=== PATIENT | female | born 1935 | race Caucasian/White ===

== ENCOUNTER 2018-09-27 11:39 | Outpatient (RCR) | payer MEDICARE ==
[2018-07-02 12:59] LABS: INR 1.8 (0.8-1.4); PROTHROMBIN TIME PATIENT 20.8 SEC (12.2-14.7)
[~2018-09-27 11:39] MED LIST: HYDR-2890 PO; WARF5TAB PO
[2018-09-27 13:00] LABS: INR 2.1 (0.8-1.4); PROTHROMBIN TIME PATIENT 24.1 SEC (12.2-14.7)
== END 2018-09-30 | disposition home or self-care (01) ==
LOC: LAB FS 11:39
PROVIDERS: ATTEND Pediatrics
DX: Z86.711 Personal history of pulmonary embolism (principal)
CPT/HCPCS: 36415; 85610

== ENCOUNTER 2019-02-20 16:18 | Emergency (ER) | payer MEDICARE ==
[~2019-02-20] VITALS: Ht 168 cm; Wt 100.0 kg
--- NOTE | 2019-02-20 16:20 | ED General ---
General Stated Complaint: LACERATION Source of Information: Patient History of Present Illness Date Seen by Provider: Feb 20, 2019 Time Seen by Provider: 16:40 Initial Comments Patient is an 83-year-old female who was at home when she was moving some bags of heavy contents. Incidentally, one of the bags had a knife in it which accidentally lacerated her on the ulnar aspect of the right distal forearm. Although the laceration was small, the patient does take chronic anticoagulation medications and her bleeding was not controllable at home. She went to a local urgent care and was referred to the emergency department. On arrival to the ER, she had continual oozing of small amount of blood but no nina bleeding. Denies any other injuries. Her last tetanus shot was in 2012, according to electronic medical record. Allergies and Home Medications Allergies Coded Allergies: Sulfa (Sulfonamide Antibiotics) (Verified Allergy, Unknown, 05/17/13) Uncoded Allergies: KFLEX (Allergy, Severe, RASH, 05/17/13) Home Medications Hydrocodone Bit/Acetaminophen 1 Each Tablet, 1 EACH PO Q4H PRN for PAIN, (Reported) Warfarin Sodium 5 Mg Tablet, 5 MG PO DAILY, (Reported) 5 MG FOR 2 DAYS THEN 5 1/2 FOR ONE DAY THEN BACK TO 5 MG Patient Home Medication List Home Medication List Reviewed: Yes Review of Systems Review of Systems Constitutional: no symptoms reported EENTM: no symptoms reported Respiratory: no symptoms reported Cardiovascular: no symptoms reported Musculoskeletal: no symptoms reported Skin: see HPI All Other Systems Reviewed Negative Unless Noted: Yes Past Ngnwbsh-Mjhqdp-Lcsgns Hx Immunizations Up To Date Date of Pneumonia Vaccine: May 03, 2012 Date of Influenza Vaccine: Mar 03, 2013 Past Medical History Arthritis Physical Exam Vital Signs Vital Signs - First Documented 02/20/19 16:20 Temp 36.4 Pulse 84 Resp 20 B/P (MAP) 151/77 (101) Pulse Ox 95 O2 Delivery Room Air Capillary Refill : Height, Weight, BMI Height: 5'6" Weight: 222lbs. oz. 100.819543kp; BMI Method: General Appearance: No Apparent Distress, WD/WN HEENT: Normal ENT Inspection Neck: Full Range of Motion Respiratory: Lungs Clear, Normal Breath Sounds Extremity: Normal Capillary Refill Neurologic/Psychiatric: Alert, Oriented x3 Skin: Normal Color, Warm/Dry, Other (less than 1 cm laceration is present in the area described. No active bleeding. Laceration does extend through the skin and just into the fascia. No visible tendons, nerves, arteries) Procedures/Interventions Wound Location: Upper Extremities Wound's Depth, Shape: superficial, irregular Wound Explored: clean Betadine Prep?: Yes Anesthesia: 1% Lidocaine Suture: Chromic Suture Size: 4-0 Number of Sutures: 2 Progress/Results/Core Measures Suspected Sepsis SIRS Temperature: Pulse: Respiratory Rate: Blood Pressure / Mean: Results/Orders My Orders Orders - SHERRY HIGH DO Dipht,Pertuss(Acell),Tet Adult (Boostrix (02/20/19 16:45) Vital Signs/I&O 02/20/19 16:20 Temp 36.4 Pulse 84 Resp 20 B/P (MAP) 151/77 (101) Pulse Ox 95 O2 Delivery Room Air Capillary Refill : Progress Note : Time: 16:44 Progress Note Patient is evaluated immediately on arrival to her room. She did have slow small amount of bleeding but no brisk bleeding. Patient was placed in the exam room and the wound was immediately anesthetized with 1% lidocaine. The area was cleansed with iodine and irrigated with saline. A total of 2 sutures were placed with dissolvable suture. Following this, pressure dressing was applied. Patient was discharged home with return precautions. Recommended to leave the current dressing in place for 2 days. After that can used Band-Aid only. Return to the ER for any new bleeding or concerns for infection which were discussed. All of her questions were answered prior to discharge home. Departure Impression Primary Impression: Laceration of right forearm Disposition: 01 HOME, SELF-CARE Condition: Improved Departure-Patient Inst. Referrals: SAMMI PENNY MD (PCP/Family) Primary Care Physician SHERRY HIGH DO Feb 20, 2019 16:20 POS
[2019-02-20] MEDS ORDERED: TETANUS,DIPTH,PERTUSS P/F (BOOSTRIX) 0.5 ML VIAL IM ONE (16:45)
[2019-02-20 16:55] VITALS: BP 151/77
== END 2019-02-20 16:55 | disposition home or self-care (01) ==
LOC: EDUNIT# 16:18 → ER FS 16:19
DX: S51.811A Laceration without foreign body of right forearm, initial encounter (principal); Z79.01 Long term (current) use of anticoagulants; Z88.2 Allergy status to sulfonamides; Z88.1 Allergy status to other antibiotic agents; W26.0XXA Contact with knife, initial encounter; Y92.009 Unspecified place in unspecified non-institutional (private) residence as the place of occurrence of the external cause
CPT/HCPCS: 12001; 90715

== ENCOUNTER 2019-06-11 11:44 | Outpatient (RCR) | payer MEDICARE ==
[2019-04-29 13:09] LABS: INR 1.9 (0.8-1.4); PROTHROMBIN TIME PATIENT 22.6 SEC (12.2-14.7)
[2019-05-28 12:50] LABS: INR 3.2 (0.8-1.4); PROTHROMBIN TIME PATIENT 34.3 SEC (12.2-14.7)
[2019-06-11 12:21] LABS: INR 2.7 (0.8-1.4); PROTHROMBIN TIME PATIENT 29.6 SEC (12.2-14.7)
== END 2019-07-28 | disposition home or self-care (01) ==
LOC: LAB FS 11:44
PROVIDERS: ATTEND Pediatrics
DX: I48.0 Paroxysmal atrial fibrillation (principal)
CPT/HCPCS: 36415; 85610

== ENCOUNTER 2019-09-15 12:10 | Outpatient (RCR) | payer MEDICARE ==
[2019-09-15 13:16] LABS: INR 2.4 (0.8-1.4)
[2019-12-02 11:16] LABS: INR 1.6 (0.8-1.4); PROTHROMBIN TIME PATIENT 19.6 SEC (12.2-14.7)
== END 2019-12-16 | disposition home or self-care (01) ==
LOC: LAB FS 12:10
PROVIDERS: ATTEND Pediatrics
DX: I48.0 Paroxysmal atrial fibrillation (principal)
CPT/HCPCS: 36415; 85610

== ENCOUNTER 2019-12-16 10:25 | Outpatient (RCR) | payer MEDICARE ==
[2019-12-16 11:11] LABS: INR 1.9 (0.8-1.4); PROTHROMBIN TIME PATIENT 21.6 SEC (12.2-14.7)
== END 2020-03-15 | disposition home or self-care (01) ==
LOC: LAB FS 10:25
PROVIDERS: ATTEND Pediatrics
DX: I48.0 Paroxysmal atrial fibrillation (principal)
CPT/HCPCS: 36415; 85610

== ENCOUNTER → 2020-01-22 | Outpatient (CLI) | payer MEDICARE | LOC: LAB FS 10:48 | PROVIDERS: ATTEND Pediatrics | DX: I48.0 Paroxysmal atrial fibrillation (principal) | CPT/HCPCS: 36415; 85610 ==

== ENCOUNTER 2020-03-11 10:05 | Outpatient (RCR) | payer MEDICARE ==
[2020-03-11 10:47] LABS: INR 1.8 (0.8-1.4); PROTHROMBIN TIME PATIENT 20.7 SEC (12.2-14.7)
[2020-03-11 12:32] LABS: BILIRUBIN,URINE NEGATIVE (NEGATIVE); CLARITY,URINE CLOUDY; COLOR,URINE YELLOW; GLUCOSE, URINE (UA) NEGATIVE (NEGATIVE); KETONES,URINE NEGATIVE (NEGATIVE); LEUKOCYTE ESTERASE ,URINE TRACE (NEGATIVE); NITRITE,URINE NEGATIVE (NEGATIVE); PH,URINE 7.5 (5-9); PROTEIN,URINE NEGATIVE (NEGATIVE); WBC,URINE >100 /HPF
[2020-03-11 12:33] LABS: BACTERIA,URINE FEW /HPF
== END 2020-06-09 | disposition home or self-care (01) ==
LOC: LAB FS 10:05
PROVIDERS: ATTEND Pediatrics
DX: I48.91 Unspecified atrial fibrillation (principal); R30.0 Dysuria
CPT/HCPCS: 36415; 81000; 85610; 87077; 87088; 87186

== ENCOUNTER → 2020-05-07 | Outpatient (CLI) | payer MEDICARE ==
[2020-05-07 11:53] LABS: INR 2.3 (0.8-1.4); PROTHROMBIN TIME PATIENT 25.6 SEC (12.2-14.7)
== END ==
LOC: LAB FS 10:46
PROVIDERS: ATTEND Pediatrics
DX: I48.91 Unspecified atrial fibrillation (principal)
CPT/HCPCS: 36415; 85610

== ENCOUNTER 2020-07-13 14:31 | Outpatient (RCR) | payer MEDICARE ==
[2020-07-13 15:08] LABS: INR 1.6 (0.8-1.4); PROTHROMBIN TIME PATIENT 19.6 SEC (12.2-14.7)
== END 2020-10-11 | disposition home or self-care (01) ==
LOC: LAB FS 14:31
PROVIDERS: ATTEND Pediatrics
DX: I48.0 Paroxysmal atrial fibrillation (principal)
CPT/HCPCS: 36415; 85610

== ENCOUNTER → 2020-08-25 | Outpatient (CLI) | payer MEDICARE ==
[2020-08-25 11:42] LABS: INR 2.2 (0.8-1.4); PROTHROMBIN TIME PATIENT 24.4 SEC (12.2-14.7)
== END ==
LOC: LAB FS 09:59
PROVIDERS: ATTEND Pediatrics
DX: I26.99 Other pulmonary embolism without acute cor pulmonale (principal)
CPT/HCPCS: 36415; 85610

== ENCOUNTER → 2020-09-28 | Outpatient (CLI) | payer MEDICARE ==
[2020-09-28 11:39] LABS: INR 1.3 (0.8-1.4); PROTHROMBIN TIME PATIENT 16.6 SEC (12.2-14.7)
== END ==
LOC: LAB FS 10:29
PROVIDERS: ATTEND Pediatrics
DX: I26.99 Other pulmonary embolism without acute cor pulmonale (principal)
CPT/HCPCS: 36415; 85610

== ENCOUNTER → 2021-01-13 | Outpatient (CLI) | payer MEDICARE ==
[2021-01-13 09:23] LABS: PROTHROMBIN TIME PATIENT 16.5 SEC (12.2-14.7)
[2021-01-13 09:24] LABS: INR 1.3 (0.8-1.4)
== END ==
LOC: LAB FS 08:47
PROVIDERS: ATTEND Pediatrics
DX: I26.99 Other pulmonary embolism without acute cor pulmonale (principal)
CPT/HCPCS: 36415; 85610

== ENCOUNTER 2021-05-09 17:04 | Inpatient (IN) | payer MEDICARE ==
[~2021-05-09] VITALS: Ht 165.1 cm; Wt 94.6 kg
--- NOTE | 2021-05-09 17:22 | ED Respiratory ---
General Stated Complaint: LOW O2 Source: patient, family Exam Limitations: no limitations History of Present Illness Date Seen by Provider: May 09, 2021 Time Seen by Provider: 17:07 Initial Comments 86-year-old female with past medical history of PE on warfarin after surgical procedure coming in with family due to hypoxia. She had a cough and felt short of breath for 4 to 5 days. She was reportedly satting in the 70s at Dr. Shen's office and was referred to the emergency department. She says she has had subjective fevers, no nausea or vomiting, no diarrhea, no chest pain or abdominal pain. Has not been able to eat in a couple days because of her general weakness. Has been taking her warfarin as prescribed. Has had COVID v accines x2. Allergies and Home Medications Allergies Coded Allergies: Sulfa (Sulfonamide Antibiotics) (Verified Allergy, Unknown, 05/17/13) Uncoded Allergies: KFLEX (Allergy, Severe, RASH, 05/17/13) Patient Home Medication List Home Medication List Reviewed: Yes Hydrocodone Bit/Acetaminophen (Hydrocodon-Acetaminophn 10-325) 1 Each Tablet, 1 EACH PO Q4H PRN for PAIN, (Reported) Entered as Reported by: RYAN TELLO on 05/17/13 140 Warfarin Sodium (Coumadin) 5 Mg Tablet, 5 MG PO DAILY, (Reported) Entered as Reported by: RYAN TELLO on 05/17/13 1407 Review of Systems Review of Systems Constitutional: chills, fever EENTM: No blurred vision Respiratory: cough, short of breath Cardiovascular: No chest pain Gastrointestinal: No abdominal pain, No diarrhea, No nausea, No vomiting Genitourinary: no symptoms reported Musculoskeletal: no symptoms reported Skin: no symptoms reported Psychiatric/Neurological: No Symptoms Reported Hematologic/Lymphatic: No Symptoms Reported Immunological/Allergic: no symptoms reported All Other Systems Reviewed Negative Unless Noted: Yes Past Rkapvpl-Pqamjq-Gpsmgt Hx Patient Social History Tobacco Use?: No Past Medical History Surgeries: Yes (STONE ON LIVER DUCT) Eye Surgery, Gallbladder, Hysterectomy, Orthopedic, Tonsillectomy Respiratory: Yes Pulmonary Embolism Cardiac: Yes (Heart Disease) Hypertension 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 oz. 100.311378fy; 35.00 BMI Method: General Appearance: WD/WN, no apparent distress Eyes: Bilateral Eye Normal Inspection HEENT: PERRL/EOMI, normal ENT inspection, pharynx normal Neck: non-tender, full range of motion, supple, normal inspection Respiratory: chest non-tender, no accessory muscle use, crackles, other (Mild tachypnea and distress) Cardiovascular: no edema, no murmur, tachycardia Gastrointestinal: normal bowel sounds, non tender, soft; No distended, No guarding, No rebound Extremities: normal range of motion, non-tender, normal inspection, no pedal edema, no calf tenderness, normal capillary refill Neurologic/Psychiatric: no motor/sensory deficits, alert, normal mood/affect, oriented x 3 Skin: normal color, warm/dry Lymphatic: no adenopathy Procedures/Interventions Suture Size: 4-0 Progress/Results/Core Measures Suspected Sepsis SIRS Temperature: Pulse: Respiratory Rate: Laboratory Tests 05/09/21 17:19: White Blood Count 14.5H Blood Pressure / Mean: Laboratory Tests 05/09/21 17:19: Creatinine 1.00, Platelet Count 302, Total Bilirubin 0.9 05/09/21 17:45: INR Comment 4.5H Results/Orders Lab Results Laboratory Tests Test 05/09/21 17:19 05/09/21 17:27 05/09/21 17:45 Range/Units White Blood Count 14.5 H 4.3-11.0 10^3/uL Red Blood Count 5.37 H 3.80-5.11 10^6/uL Hemoglobin 15.7 11.5-16.0 g/dL Hematocrit 48 35-52 % Mean Corpuscular Volume 89 80-99 fL Mean Corpuscular Hemoglobin 29 25-34 pg Mean Corpuscular Hemoglobin Concent 33 32-36 g/dL Red Cell Distribution Width 12.6 10.0-14.5 % Platelet Count 302 130-400 10^3/uL Mean Platelet Volume 10.3 9.0-12.2 fL Immature Granulocyte % (Auto) 1 % Neutrophils (%) (Auto) 84 H 42-75 % Lymphocytes (%) (Auto) 4 L 12-44 % Monocytes (%) (Auto) 11 0-12 % Eosinophils (%) (Auto) 0 0-10 % Basophils (%) (Auto) 0 0-10 % Neutrophils # (Auto) 12.1 H 1.8-7.8 10^3/uL Lymphocytes # (Auto) 0.5 L 1.0-4.0 10^3/uL Monocytes # (Auto) 1.6 H 0.0-1.0 10^3/uL Eosinophils # (Auto) 0.0 0.0-0.3 10^3/uL Basophils # (Auto) 0.1 0.0-0.1 10^3/uL Immature Granulocyte # (Auto) 0.1 0.0-0.1 10^3/uL Neutrophils % (Manual) 85 % Lymphocytes % (Manual) 4 % Monocytes % (Manual) 7 % Eosinophils % (Manual) 0 % Basophils % (Manual) 0 % Band Neutrophils 4 % Sodium Level 131 L 135-145 MMOL/L Potassium Level 3.8 3.6-5.0 MMOL/L Chloride Level 89 L 98-107 MMOL/L Carbon Dioxide Level 26 21-32 MMOL/L Anion Gap 16 H 5-14 MMOL/L Blood Urea Nitrogen 31 H 7-18 MG/DL Creatinine 1.00 0.60-1.30 MG/DL Estimat Glomerular Filtration Rate 55 BUN/Creatinine Ratio 31 Glucose Level 124 H 70-105 MG/DL Calcium Level 10.0 8.5-10.1 MG/DL Corrected Calcium 10.2 H 8.5-10.1 MG/DL Magnesium Level 1.9 1.6-2.4 MG/DL Total Bilirubin 0.9 0.1-1.0 MG/DL Aspartate Amino Transf (AST/SGOT) 16 5-34 U/L Alanine Aminotransferase (ALT/SGPT) 13 0-55 U/L Alkaline Phosphatase 95 40-136 U/L Troponin I < 0.30 <0.30 NG/ML Pro-B-Type Natriuretic Peptide 1085.0 H <75.0 PG/ML Total Protein 8.7 H 6.4-8.2 GM/DL Albumin 3.8 3.2-4.5 GM/DL Influenza Type A Antigen NEGATIVE NEGATIVE Influenza Type B Antigen NEGATIVE NEGATIVE Prothrombin Time 43.4 H 12.2-14.7 SEC INR Comment 4.5 H 0.8-1.4 Activated Partial Thromboplast Time 54 H 24-35 SEC D-Dimer 3.92 H 0.00-0.49 UG/ML My Orders Orders - BRANT MEZA MD Influenza A & B Antigens (05/09/21 17:19) Covid 19 Inhouse Test (05/09/21 17:19) Cbc With Automated Diff (05/09/21 17:19) Magnesium (05/09/21 17:19) Chest 1 View Ap/Pa Only (05/09/21 17:19) Ekg Tracing (05/09/21 17:19) Comprehensive Metabolic Panel (05/09/21 17:19) Protime With Inr (05/09/21 17:19) Partial Thromboplastin Time (05/09/21 17:19) O2 (05/09/21 17:19) Monitor-Rhythm Ecg Trace Only (05/09/21 17:19) Ed Iv/Invasive Line Start (05/09/21 17:19) Fibrin Degradation Products (05/09/21 17:19) Troponin I Fs (05/09/21 17:19) Probnp Fs (05/09/21 17:19) Manual Differential (05/09/21 17:19) Ct Angio Chest W (05/09/21 18:32) Iohexol Injection (Omnipaque 350 Mg/Ml 1 (05/09/21 18:45) Received Contrast (Hold Metformin- Contr (05/09/21 18:45) Ns (Ivpb) (Sodium Chloride 0.9% Ivpb Bag (05/09/21 18:45) Dexamethasone Injection (Decadron Injec (05/09/21 19:00) Arterial Blood Gas (05/09/21 18:55) Ed Admission (Communication) (05/09/21 18:55) Ceftriaxone 1 Gm Pre-Mix (Rocephin 1 Gm (05/09/21 19:30) Azithromycin Tablet (Zithromax Tablet) (05/09/21 19:30) Ns Iv 1000 Ml (Sodium Chloride 0.9%) (05/09/21 19:30) Medications Given in ED Current Medications Medications Dose Ordered Sig/Tayler Route Start Time Stop Time Status Last Admin Dose Admin Iohexol 150 ml ONCE ONCE IV 05/09/21 18:45 05/09/21 18:46 DC 05/09/21 19:03 100 ML Sodium Chloride 100 ml ONCE ONCE IV 05/09/21 18:45 05/09/21 18:46 DC 05/09/21 19:04 100 ML Vital Signs/I&O 05/09/21 17:22 Temp 36.1 Pulse 119 Resp 20 B/P (MAP) Pulse Ox 79 O2 Delivery Room Air Capillary Refill : Progress Note : Progress Note 86-year-old female with above history coming in short of breath with cough and flulike symptoms. The patient was satting around 79% on arrival and was placed on 4 L oxygen with improvement to around 94 to 98%. She was mildly tachycardic. An IV was placed and basic labs were obtained including cardiac biomarkers and D-dimer. She had a negative antigen test for COVID today, however these can be inaccurate. Flu testing today negative as well. We sent a PCR test to confirm for COVID. Chest x-ray with scattered opacities which could be atypical pneumonia versus pulmonary edema. Patient was given Decadron 6 mg for presumed COVID. Also started on maintenance IV fluids given her decreased p.o. D-dimer elevated so CTA chest ordered. Discussed the case with Dr. Najera and the patient will be admitted under inpatient status for further evaluation and management. ECG Initial ECG Impression Date: May 09, 2021 Initial ECG Impression Time: 19:15 Initial ECG Rate: 111 Initial ECG Rhythm: S.Tach Comment Wide QRS with a left bundle branch block, no significant ST changes or T wave abnormalities Diagnostic Imaging Diagonstic Imaging: Xray Plain Films/CT/US/NM/MRI: chest Comments [facility]. [place], [place] NAME: TADEO MILLS [facility] REC#: [id number] PT STATUS: REG ER : 1935 PHYSICIAN: BRANT MEZA MD ADMIT DATE: 05/09/21/ER FS Draft Date of Exam:05/09/21 CHEST 1 VIEW AP/PA ONLY EXAMINATION: Chest 1 view HISTORY: SOB COMPARISON: None available. FINDINGS: Heart size and pulmonary vasculature are normal. There are patchy interstitial opacities seen throughout both lungs. No pleural effusion or pneumothorax. The osseous structures are intact. IMPRESSION: 1. Patchy interstitial opacities seen throughout both lungs which can be seen with atypical infection or pulmonary edema. Dictated on workstation # [id number] Dict: 05/09/21 1736 Trans: 05/09/21 1753 [facility] [id number] Interpreted by: FADY LEE DO Electronically signed by: Departure Impression Primary Impression: Respiratory failure Qualified Codes: J96.01 - Acute respiratory failure with hypoxia Additional Impression: Person under investigation for COVID-19 Disposition: 30 STILL A PATIENT Condition: Stable Admissions Decision to Admit Reason: Admit from ER (General) Decision to Admit/Date: May 09, 2021 Time/Decision to Admit Time: 19:05 Transfer Method of Transfer: EMS Departure-Patient Inst. Referrals: SAMMI PENNY MD (PCP/Family) Primary Care Physician BRANT MEZA MD May 09, 2021 17:22
[2021-05-09 17:32] LABS: BASOPHILS # (AUTO) 0.1 10^3/uL (0.0-0.1); BASOPHILS % (AUTO) 0 % (0-10); EOSINOPHILS % (AUTO) 0 % (0-10); HEMATOCRIT 48 % (35-52); HEMOGLOBIN 15.7 g/dL (11.5-16.0); LYMPHOCYTES # (AUTO) 0.5 10^3/uL (1.0-4.0); LYMPHOCYTES % (AUTO) 4 % (12-44); MEAN CORPUSCULAR HEMOGLOBIN 29 pg (25-34); MEAN CORPUSCULAR HGB CONC 33 g/dL (32-36); MEAN CORPUSCULAR VOLUME 89 fL (80-99); MEAN PLATELET VOLUME 10.3 fL (9.0-12.2); MONOCYTES # (AUTO) 1.6 10^3/uL (0.0-1.0); MONOCYTES % (AUTO) 11 % (0-12); NEUTROPHILS # (AUTO) 12.1 10^3/uL (1.8-7.8); NEUTROPHILS % (AUTO) 84 % (42-75); PLATELET COUNT 302 10^3/uL (130-400); WHITE BLOOD COUNT 14.5 10^3/uL (4.3-11.0)
--- NOTE | 2021-05-09 17:53 | Diagnostic Imaging Report ---
EXAMINATION: Chest 1 view HISTORY: SOB COMPARISON: None available. FINDINGS: Heart size and pulmonary vasculature are normal. There are patchy interstitial opacities seen throughout both lungs. No pleural effusion or pneumothorax. The osseous structures are intact. IMPRESSION: 1. Patchy interstitial opacities seen throughout both lungs which can be seen with atypical infection or pulmonary edema. Dictated by: Dictated on workstation # [id number]
[2021-05-09 17:59] LABS: BAND NEUTROPHILS 4 %; BASOPHILS % (MANUAL) 0 %; EOSINOPHILS % (MANUAL) 0 %; LYMPHOCYTES % (MANUAL) 4 %; MONOCYTES % (MANUAL) 7 %; NEUTROPHILS % (MANUAL) 85 %
[2021-05-09 18:05] LABS: INR 4.5 (0.8-1.4); PROTHROMBIN TIME PATIENT 43.4 SEC (12.2-14.7)
[2021-05-09 18:06] LABS: BILIRUBIN,TOTAL 0.9 MG/DL (0.1-1.0); MAGNESIUM 1.9 MG/DL (1.6-2.4); POTASSIUM 3.8 MMOL/L (3.6-5.0); TOTAL PROTEIN 8.7 GM/DL (6.4-8.2)
[2021-05-09 18:07] LABS: ALBUMIN 3.8 GM/DL (3.2-4.5)
[2021-05-09] MEDS ORDERED: HOLD METFORMIN - RECEIVED CONTRAST 20 ML VIAL IV SCH (18:45)
[2021-05-09] MEDS ORDERED: IOHEXOL 350 MG/ML 150 ML (OMNIPAQUE 350) VIAL IV ONE (18:45)
[2021-05-09] MEDS ORDERED: NS 100 ML (IVPB) BAG IV ONE (18:45)
[2021-05-09] MEDS ORDERED: LACTATED RINGERS 1,000 ML IV SCH (19:00)
--- NOTE | 2021-05-09 19:13 | Diagnostic Imaging Report ---
EXAMINATION: CT angiography of the chest. TECHNIQUE: Contrast enhanced thin section helical images were obtained through the chest with intravenous contrast timed for the optimal opacification of the arterial structures per CTA protocol. Post-processing, reconstructions and interpretation of angiographic images of the vessels was performed. 3D MIP reconstructions were performed and reviewed. All CT scans use one or more of the following dose optimizing techniques: automated exposure control, MA and/or KvP adjustment based on a patient size and exam type, or iterative reconstruction. HISTORY: hypoxic, dimer positive, previous PE COMPARISON: None available. FINDINGS: Vascular: No filling defects are seen within the main or proximal pulmonary arteries. Evaluation of the distal pulmonary arteries is limited secondary to respiratory motion. There are vascular calfications of the aorta and coronary vessels without aneurysm. Thyroid: The thyroid is normal. Mediastinum: Heart size is normal without significant pericardial effusion. There are a few prominent mediastinal lymph nodes which may be reactive. Lungs and airways: There are patchy groundglass opacities seen throughout both lungs. No pleural effusion or pneumothorax. The airways are normal. Upper abdomen: The subphrenic structures are normal. Musculoskeletal: Degenerative changes of the spine without suspicious osseous lesion or compression fracture. IMPRESSION: 1. No obvious findings of pulmonary embolus. Evaluation of the distal arteries is limited secondary to respiratory motion. 2. Patchy groundglass opacities throughout both lungs concerning for multifocal pneumonia. Dictated by: Dictated on workstation # [id number]
[2021-05-09] MEDS ORDERED: NS IV 1000 ML 1,000 ML IV SCH (19:30)
[2021-05-09] MEDS ORDERED: cefTRIAXone 1 GM PRE-MIX 50 ML IV ONE (19:30)
[2021-05-09] MEDS ORDERED: AZITHROMYCIN 250 MG TAB (ZITHROMAX) PO ONE (19:30)
[2021-05-09 19:40] LABS: ABG PH 7.24 (7.37-7.43)
[2021-05-09 19:41] LABS: ABG BASE EXCESS 0.9 MMOL/L (-2.5-2.5); ABG OXYGEN SATURATION 91 % (94-100); ABG PCO2 70 MMHG (35-45); ABG PO2 71 MMHG (79-93); ABG TCO2 32.1 MMOL/L (21.0-31.0); ALLENS TEST OK; INSPIRED O2 4 LITERS; PATIENT TEMP 36.9 C; VENTILATOR NO
[2021-05-09] MEDS ORDERED: morphine INJ 4 MG/ML 1 ML (VIAL/SYRINGE) IV PRN (22:45)
[2021-05-09] MEDS ORDERED: BISACODYL 10 MG SUPP (DULCOLAX) PR PRN (22:45)
[2021-05-09] MEDS ORDERED: diphenhydrAMINE 25 MG TAB (BENADRYL) PO PRN (22:45)
[2021-05-09] MEDS ORDERED: MELATONIN 3 MG TABLET PO PRN (22:45)
[2021-05-09] MEDS ORDERED: diphenhydrAMINE 50 MG/ML INJ (BENADRYL) IVP PRN (22:45)
[2021-05-09] MEDS ORDERED: HYDROcodone/APAP 5 MG/325 MG (LORTAB) TAB PO PRN (22:45)
[2021-05-09] MEDS ORDERED: ONDANSETRON 4 MG (ZOFRAN) ORAL DISSOLVE TAB PO PRN (22:45)
[2021-05-09] MEDS ORDERED: ACETAMINOPHEN 325 MG TABLET PO PRN (22:45)
[2021-05-09] MEDS ORDERED: ANTACID SUSP 30 ML UDC (MYLANTA) PO PRN (22:45)
[2021-05-09] MEDS ORDERED: ONDANSETRON 4 MG/2 ML (SDV) Z0FRAN IV PRN (22:45)
[2021-05-09] MEDS ORDERED: polyethylene glycoL POWDER 17 GM (MIRALAX) PACK PO PRN (22:45)
[2021-05-09 23:59] VITALS: BP 42/98
[2021-05-10] VITALS (26 sets, daily range): BP systolic 99–153; BP diastolic 48–77
[2021-05-10] MEDS ORDERED: RT-ALBUTEROL HFA 8.5 GM INHALER IH PRN (00:15)
[2021-05-10 01:12] LABS: ABG BASE EXCESS 2.5 MMOL/L (-2.5-2.5); ABG OXYGEN SATURATION 97 % (94-100); ABG PO2 98 MMHG (79-93); ABG TCO2 31.9 MMOL/L (21.0-31.0)
[2021-05-10 01:17] LABS: ABG PCO2 78 MMHG (35-45); ABG PH 7.21 (7.37-7.43); ALLENS TEST YES-POS; INSPIRED O2 70%; PATIENT TEMP 37.6; VENTILATOR NO
--- NOTE | 2021-05-10 02:19 | Tele-ICU Consult ---
History of Present Illness History of Present Illness Date Seen by Provider: May 10, 2021 Time Seen by Provider: 02:12 Date of Admission 86 y old lady with recent post op PE (on Coumadin), COVID vaccinated, presented with sob and viral sdr. Pt was found to be COVID; she developed acute hypercarbic resp failure and was placed on BIPAP. Empiric abx were started. Allergies and Home Medications Allergies Coded Allergies: Sulfa (Sulfonamide Antibiotics) (Verified Allergy, Unknown, 05/17/13) Uncoded Allergies: KFLEX (Allergy, Severe, RASH, 05/17/13) Home Medications Hydrocodone Bit/Acetaminophen 1 Each Tablet, 1 EACH PO Q4H PRN for PAIN, (Reported) Warfarin Sodium 5 Mg Tablet, 5 MG PO DAILY, (Reported) 5 MG FOR 2 DAYS THEN 5 1/2 FOR ONE DAY THEN BACK TO 5 MG Past Medical/Social/Family Hx Patient Social History Employed/Student: retired Tobacco Use?: No Use of E-Cig and/or Vaping dev: No Substance use?: No Alcohol Use?: No Pt stated abuse/neglect: No Immunizations Up To Date Influenza Vaccine Up-to-Date: Yes; Up-to-Date First/Initial COVID19 Vaccinat: UNKOWN Tetanus Booster (TDap): Unknown Hepatitis A: Yes Hepatitis B: Yes TB Skin Test: None Date of Pneumonia Vaccine: May 03, 2012 Current Status Advance Directives: No Communicates: Verbally Primary Language: Belarusian Preferred Spoken Language: Belarusian Is interpretation needed?: No Sensory deficits: Vision impairment Implanted or Applied Medical D: None, BiPAP Past Medical History COPD Review of Systems Constitutional: see HPI Focused Exam Lactate Level 05/09/21 17:19: Lactic Acid Level 2.46*H 05/09/21 20:50: Lactic Acid Level 0.98 Height, Weight, BMI Height: 5'6" Weight: 222lbs. oz. 100.147523hg; 34.70 BMI Method: Exam Exam Patient acknowledged, consented, and participated in this virtual visit which was conducted using real time audio/video Vital Signs Date Time Temp Pulse Resp B/P (MAP) Pulse Ox O2 Delivery O2 Flow Rate FiO2 05/10/21 01:45 NIV Bilevel 50.00 05/10/21 00:45 36.4 104 20 153/77 (102) 91 Nasal Cannula 4.00 05/10/21 00:10 80 97 70.00 05/09/21 23:59 36.1 119 79 21 05/09/21 21:00 36.4 102 20 131/92 94 Nasal Cannula 4.00 05/09/21 20:30 104 20 173/87 Nasal Cannula 4.00 05/09/21 19:30 108 18 151/62 92 Nasal Cannula 4.00 05/09/21 17:22 36.1 119 20 79 Room Air 05/09/21 17:19 79 Nasal Cannula 4.00 Height & Weight Height: 5'6" Weight: 222lbs. oz. 100.461461ot; 34.70 BMI Method: General Appearance: No Apparent Distress Capillary Refill: Less Than 3 Seconds Gastrointestinal: normal bowel sounds, non tender, soft; No distended, No guarding, No rebound Results Lab Laboratory Tests 05/09/21 17:19 Assessment/Plan Assessment/Plan 1. Acute hypercarbic hypoxemic resp failure in the conetx of covid -bipap to be titrated based on abg -consdier intubation if needed 2. COVID -pna/ ro bacterial coinfection: empiric abx/ procal ordered -vte on lovenox once inr<3 -decadron started -monoclonal abx DEE DEE PINTO MD May 10, 2021 02:19
[2021-05-10 02:49] LABS: ABG BASE EXCESS 3.3 MMOL/L (-2.5-2.5); ABG OXYGEN SATURATION 94 % (94-100); ABG PCO2 57 MMHG (35-45); ABG PO2 63 MMHG (79-93); ABG TCO2 30.9 MMOL/L (21.0-31.0)
[2021-05-10 02:51] LABS: ABG PH 7.32 (7.37-7.43)
[2021-05-10 02:52] LABS: ALLENS TEST YES-POS; INSPIRED O2 40%; PATIENT TEMP 36.2; VENTILATOR NO
[2021-05-10 02:57] LABS: BASOPHILS % (AUTO) 0 % (0-10); EOSINOPHILS % (AUTO) 0 % (0-10); HEMATOCRIT 41 % (35-52); LYMPHOCYTES # (AUTO) 0.3 10^3/uL (1.0-4.0); LYMPHOCYTES % (AUTO) 3 % (12-44); MEAN CORPUSCULAR HEMOGLOBIN 29 pg (25-34); MEAN CORPUSCULAR HGB CONC 32 g/dL (32-36); MEAN CORPUSCULAR VOLUME 92 fL (80-99); MEAN PLATELET VOLUME 10.6 fL (9.0-12.2); MONOCYTES # (AUTO) 0.5 10^3/uL (0.0-1.0); MONOCYTES % (AUTO) 4 % (0-12); NEUTROPHILS # (AUTO) 10.9 10^3/uL (1.8-7.8); NEUTROPHILS % (AUTO) 92 % (42-75); PLATELET COUNT 253 10^3/uL (130-400); WHITE BLOOD COUNT 11.8 10^3/uL (4.3-11.0)
[2021-05-10 03:12] LABS: CALCIUM 9.1 MG/DL (8.5-10.1)
[2021-05-10 03:13] LABS: TOTAL PROTEIN 6.8 GM/DL (6.4-8.2)
[2021-05-10 03:15] LABS: BILIRUBIN,TOTAL 0.5 MG/DL (0.1-1.0)
[2021-05-10 03:16] LABS: CREATININE SERUM 0.73 MG/DL (0.60-1.30)
[2021-05-10 03:18] LABS: INR 4.8 (0.8-1.4)
[2021-05-10] MEDS: inSUlin ASPART (NovoLOG) 1 UNIT/0.01 ML (CHARGE PER UNIT) SC SCH ×4 (03:24→21:21)
[2021-05-10 03:46] LABS: PROTHROMBIN TIME PATIENT 45.7 SEC (12.2-14.7)
[2021-05-10] MEDS: POTASSIUM CL 10MEQ/50ML IVPB 50 ML IV SCH (04:12)
[2021-05-10] MEDS: KCL 20 MEQ TAB (K-DUR) PO SCH (04:12)
[2021-05-10] MEDS: MAGNESIUM 1 GM/100 ML IVPB 100 ML IV SCH (04:12)
[2021-05-10] MEDS ORDERED: DexMEDEtomidine 250 ML DRIP 250 ML IV SCH (04:45)
[2021-05-10] MEDS ORDERED: DexMEDEtomidine 250 ML DRIP 250 ML IV ONE (04:48)
[2021-05-10] MEDS: DOCUSATE SODIUM 100 MG (COLACE) CAP PO SCH ×2 (08:02→21:20)
[2021-05-10] MEDS: RT-ALBUTEROL HFA 8.5 GM INHALER IH SCH ×5 (08:24→22:58)
--- NOTE | 2021-05-10 10:42 | History & Physical-Hospitalist ---
BRANT GARCIA 05/10/21 1042: History of Present Illness HPI/Chief Complaint CC: Shortness of Breath HPI: This is an 86yoWF who presented yesterday to the ED with weakness and shortness of breath. Her niece, Jennifer, brought her to the ED after the patient wa s complaining of feeling "cold-like symptoms" for a period of 4 days. Jennifer's daughter drove to flower picker Shantel at her home and found her sitting in her own feces and urine. It was discovered that the patient was in this condition for approximately 4 days with little food or care. She lives at home with her 95yo and mentally handicapped 45yo son who she is the primary caregiver for. Upon arrival to the ED she tested positive for COVID and was placed on BiPAP due to respiratory distress. A CXR and CTA were obtained which suggested patchy interstitial infiltrates without any evidence of thrombus. Patient takes Coumadin 4mg daily due to a history of clots following surgical procedures. Jennifer, her niece, states that she has been taking this for years to prevent further thrombus formation. Otherwise, Jennifer states that she has no other significant past medical history. Exam Limitations: clinical condition Date Seen 05/10/21 Time Seen by a Provider: 09:30 Attending Physician Hansa Najera John M MD Referring Physician Date of Admission May 09, 2021 at 21:56 Home Medications & Allergies Home Medications Reviewed patient Home Medication Reconciliation performed by pharmacy medication reconciliations insulator technician and/or nursing. Patients Allergies have been reviewed. Allergies Allergies Coded Allergies Sulfa (Sulfonamide Antibiotics) (Verified Allergy, Unknown, 05/17/13) Uncoded Allergies KFLEX ( Allergy, Severe, RASH, 05/17/13) Past Laddeos-Miruty-Mfeylv Hx Patient Social History Marrital Status: Living Status: lives at home with 95yr and 45yo mentally handicapped son Employed/Student: retired Tobacco Use?: No Use of E-Cig and/or Vaping dev: No Substance use?: No Alcohol Use?: No Pt feels they are or have been: No Immunizations Up To Date Date of Influenza Vaccine: Mar 03, 2013 First/Initial COVID19 Vaccinat: Obtained Second COVID19 Vaccination Riley: Obtained - no booster Tetanus Booster (TDap): Unknown Hepatitis A: Yes Hepatitis B: Yes Date of Pneumonia Vaccine: May 03, 2012 Current Status Advance Directives: No Communicates: Verbally Primary Language: Citizen Of [place] Preferred Spoken Language: Citizen Of [place] Is interpretation needed?: No Sensory deficits: Vision impairment Implanted or Applied Medical D: None, BiPAP Past Medical History Surgeries: Eye Surgery, Gallbladder, Hysterectomy, Orthopedic, Tonsillectomy Pulmonary Embolism Hypertension 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: Hysterectomy Kidney Stones Gastroesophageal Reflux Arthritis Cataract Depression Blood Disorders: No Review of Systems Constitutional: weakness EENTM: no symptoms reported Respiratory: dyspnea on exertion, short of breath Cardiovascular: no symptoms reported Gastrointestinal: no symptoms reported Genitourinary: no symptoms reported Musculoskeletal: no symptoms reported Skin: no symptoms reported Psychiatric/Neurological: No Symptoms Reported Physical Exam Physical Exam Vital Signs Vital Signs - First Documented 05/09/21 05/09/21 05/09/21 05/09/21 05/09/21 00:45 17:19 17:22 19:30 23:59 Temp 36.1 Pulse 85 Resp 25 B/P (MAP) 151/62 Pulse Ox 98 O2 Delivery Nasal Cannula O2 Flow Rate 70.00 FiO2 21 Capillary Refill : Less Than 3 Seconds Height, Weight, BMI Height: 5'6" Weight: 222lbs. oz. 100.993278bw; 34.70 BMI Method: General Appearance: Anxious, Mild Distress Eyes: Bilateral Eye Normal Inspection, Bilateral Eye PERRL, Bilateral Eye EOMI HEENT: PERRL/EOMI, Pharynx Normal, Moist Mucous Membranes Neck: Full Range of Motion, Normal Inspection, Non Tender, Supple Respiratory: Chest Non Tender, Normal Breath Sounds, No Accessory Muscle Use, Respiratory Distress (on BiPAP) Cardiovascular: Regular Rate, Rhythm, No Edema, No Gallop, No JVD, No Murmur, Normal Peripheral Pulses Gastrointestinal: Normal Bowel Sounds, No Organomegaly, Non Tender, Soft Rectal: Deferred Back: Normal Inspection Extremity: Normal Capillary Refill, Normal Inspection Neurologic/Psychiatric: Alert, Oriented x3, No Motor/Sensory Deficits, Normal Mood/Affect, rn medical surgical II-XII Norm as Tested Skin: Normal Color, Warm/Dry Results Results/Procedures Labs Laboratory Tests 05/09/21 17:19 05/10/21 02:46 Patient resulted labs reviewed. Imaging: Reviewed Imaging Report Assessment/Plan Admission Diagnosis Acute Hypoxic Respiratory Failure Admission Status: Inpatient Order (span 2 midnights) Reason for Inpatient Admission: Respiratory support Diagnosis/Problems Diagnosis/Problems (1) Respiratory failure Onset Date: ~ 05/09/2021 Status: Acute Assessment & Plan: BiPAP Monitor need for intubation via ABG ABG 7.32/57/63/29 Precedex Advanced Directive Qualifiers: Chronicity: acute Respiratory failure complication: hypoxia Qualified Codes: J96.01 - Acute respiratory failure with hypoxia (2) COVID Onset Date: ~ 05/09/2021 Status: Acute Assessment & Plan: Decadron Empiric Antibiotics (Azithryomcin D#2) (Ceftriaxone D#2) IVF/K+/Mg2+ CXR: patchy interstitial infiltrates CTA: no evidence of thrombus HANSA NAJERA DO 05/11/21 0531: Supervisory-Addendum Brief Verification & Attestation Participated in pt care: history, MDM, physical Personally performed: exam, history, MDM, supervision of care Care discussed with: Medical Student Procedures: n/a Results interpretation: Verified all documentation Verification and Attestation of Medical Student E/M Service A medical student performed and documented this service in my presence. I reviewed and verified all information documented by the medical student and made modifications to such information, when appropriate. I personally performed the physical exam and medical decision making. Hansa Najera, May 11, 2021,05:31 BRANT GARCIA May 10, 2021 10:42 HANSA NAJERA DO May 11, 2021 05:31
--- NOTE | 2021-05-10 10:47 | Tele-ICU Progress Note ---
Progress Note Available chart/ vitals / labs / Images reviewed Video assessment done using teleICU camera, rest of exam as per RN Discussed with RN , EXAM PER RN Patient is awake , on precedex , fio2 30 % will try to take off BIPAP and reassess mental status and abg Focused Exam Lactate Level 05/09/21 17:19: Lactic Acid Level 2.46*H 05/09/21 20:50: Lactic Acid Level 0.98 Height, Weight, BMI Height: 5'6" Weight: 222lbs. oz. 100.883442bw; 34.70 BMI Method: ANNABELLE ADAMS MD May 10, 2021 10:47
[2021-05-10 12:54] LABS: ABG BASE EXCESS 4.4 MMOL/L (-2.5-2.5); ABG OXYGEN SATURATION 94 % (94-100); ABG PCO2 46 MMHG (35-45); ABG PH 7.41 (7.37-7.43); ABG PO2 60 MMHG (79-93); ABG TCO2 30.4 MMOL/L (21.0-31.0)
[2021-05-10 12:57] LABS: ALLENS TEST YES-POS; INSPIRED O2 30%; VENTILATOR NO
[2021-05-10] MEDS ORDERED: AMLO-250 PO (14:01)
[2021-05-10] MEDS ORDERED: WARF4TAB3 PO (14:01)
[2021-05-10] MEDS ORDERED: PROM5SYR PO (14:01)
[2021-05-10] MEDS ORDERED: CALC-140 PO (14:01)
[2021-05-10] MEDS ORDERED: PRAV40TA2 PO (14:01)
[2021-05-10] MEDS ORDERED: FLUO10CA33 PO (14:01)
[2021-05-10] MEDS ORDERED: TRAM50TA3 PO (14:01)
[2021-05-10] MEDS ORDERED: GUAI-370 PO (14:05)
[2021-05-11] VITALS (14 sets, daily range): BP systolic 109–167; BP diastolic 47–88
[2021-05-11] MEDS: RT-ALBUTEROL HFA 8.5 GM INHALER IH SCH ×6 (02:35→22:38)
[2021-05-11 05:43] LABS: BASOPHILS % (AUTO) 0 % (0-10); EOSINOPHILS % (AUTO) 0 % (0-10); HEMATOCRIT 40 % (35-52); HEMOGLOBIN 13.3 g/dL (11.5-16.0); LYMPHOCYTES # (AUTO) 0.4 10^3/uL (1.0-4.0); LYMPHOCYTES % (AUTO) 3 % (12-44); MEAN CORPUSCULAR HEMOGLOBIN 30 pg (25-34); MEAN CORPUSCULAR HGB CONC 34 g/dL (32-36); MEAN CORPUSCULAR VOLUME 89 fL (80-99); MEAN PLATELET VOLUME 10.9 fL (9.0-12.2); MONOCYTES # (AUTO) 0.7 10^3/uL (0.0-1.0); MONOCYTES % (AUTO) 5 % (0-12); NEUTROPHILS # (AUTO) 11.6 10^3/uL (1.8-7.8); NEUTROPHILS % (AUTO) 91 % (42-75); PLATELET COUNT 282 10^3/uL (130-400); WHITE BLOOD COUNT 12.8 10^3/uL (4.3-11.0)
[2021-05-11 06:05] LABS: POTASSIUM 3.9 MMOL/L (3.6-5.0)
[2021-05-11 06:06] LABS: CALCIUM 9.5 MG/DL (8.5-10.1)
[2021-05-11 06:07] LABS: TOTAL PROTEIN 6.7 GM/DL (6.4-8.2)
[2021-05-11 06:09] LABS: BILIRUBIN,TOTAL 0.4 MG/DL (0.1-1.0)
[2021-05-11 06:11] LABS: CREATININE SERUM 0.65 MG/DL (0.60-1.30)
[2021-05-11 06:14] LABS: MAGNESIUM 2.3 MG/DL (1.6-2.4)
[2021-05-11] MEDS: MAGNESIUM 1 GM/100 ML IVPB 100 ML IV SCH (06:20)
[2021-05-11] MEDS: KCL 20 MEQ TAB (K-DUR) PO SCH (06:20)
[2021-05-11] MEDS: POTASSIUM CL 10MEQ/50ML IVPB 50 ML IV SCH (06:20)
[2021-05-11] MEDS: inSUlin ASPART (NovoLOG) 1 UNIT/0.01 ML (CHARGE PER UNIT) SC SCH ×3 (06:39→18:08)
[2021-05-11] MEDS: DOCUSATE SODIUM 100 MG (COLACE) CAP PO SCH ×2 (08:53→20:36)
--- NOTE | 2021-05-11 09:16 | Tele-ICU Progress Note ---
Subjective Date Seen by a Provider: May 11, 2021 Time Seen by a Provider: 09:16 Sepsis Event Evaluation Height, Weight, BMI Height: 5'6" Weight: 222lbs. oz. 100.546016hd; 34.70 BMI Method: Focused Exam Lactate Level 05/09/21 17:19: Lactic Acid Level 2.46*H 05/09/21 20:50: Lactic Acid Level 0.98 Exam Exam Patient acknowledged, consented, and participated in this virtual visit which was conducted using real time audio/video Vital Signs Date Time Temp Pulse Resp B/P (MAP) Pulse Ox O2 Delivery O2 Flow Rate FiO2 05/11/21 08:23 36.1 05/11/21 08:00 90 128/60 (82) 96 Nasal Cannula 3.00 05/11/21 07:00 82 126/62 (83) 94 Nasal Cannula 3.00 05/11/21 07:00 81 05/11/21 06:37 94 Nasal Cannula 3.00 05/11/21 06:00 80 130/60 (83) 96 Nasal Cannula 3.00 05/11/21 05:00 89 143/64 (90) 99 Nasal Cannula 3.00 05/11/21 04:00 Nasal Cannula 3.00 05/11/21 04:00 91 116/47 (70) 96 Nasal Cannula 3.00 05/11/21 03:00 98 133/63 (86) 95 Nasal Cannula 3.00 05/11/21 02:35 93 Nasal Cannula 3.00 05/11/21 02:00 98 133/63 (86) 95 Nasal Cannula 3.00 05/11/21 01:00 87 131/55 (80) 95 Nasal Cannula 3.00 05/11/21 01:00 100 05/11/21 00:00 Nasal Cannula 3.00 05/11/21 00:00 98 109/88 (95) 93 Nasal Cannula 3.00 05/10/21 23:00 91 108/53 (71) 94 Nasal Cannula 3.00 05/10/21 22:58 95 Nasal Cannula 3.00 05/10/21 22:00 89 23 137/61 (86) 95 Nasal Cannula 3.00 05/10/21 21:00 95 13 104/63 (77) 95 Nasal Cannula 3.00 05/10/21 20:00 Nasal Cannula 3.00 05/10/21 20:00 112 20 132/67 (88) 93 Nasal Cannula 3.00 05/10/21 20:00 36.4 05/10/21 19:39 93 Nasal Cannula 3.00 05/10/21 19:00 96 05/10/21 19:00 106 20 152/70 (97) 93 Nasal Cannula 3.00 05/10/21 18:00 90 25 133/59 (83) 93 Nasal Cannula 3.00 05/10/21 17:00 95 36 106/57 (73) 93 Nasal Cannula 3.00 05/10/21 16:50 Nasal Cannula 3.00 05/10/21 16:00 36.5 05/10/21 16:00 98 20 126/64 (84) 92 Nasal Cannula 3.00 05/10/21 15:00 98 14 143/61 (88) 93 Nasal Cannula 3.00 05/10/21 14:54 90 Nasal Cannula 3.00 05/10/21 14:00 88 31 133/57 (82) 95 Nasal Cannula 3.00 05/10/21 13:00 97 30 134/73 (93) 93 Nasal Cannula 3.00 05/10/21 12:45 85 05/10/21 12:30 35.8 05/10/21 12:00 87 20 129/66 (87) 91 Nasal Cannula 3.00 05/10/21 11:50 Nasal Cannula 3.00 05/10/21 11:00 82 22 118/63 (81) 94 Nasal Cannula 3.00 05/10/21 10:50 94 Nasal Cannula 3.00 05/10/21 10:43 94 Nasal Cannula 3.00 05/10/21 10:16 93 Nasal Cannula 4.00 05/10/21 10:00 75 21 122/63 (82) 90 NIV Bilevel 30.00 I & O 05/11/21 06:59 Intake Total 2450 ml Output Total 2725 ml Balance -275 ml Height & Weight Height: 5'6" Weight: 222lbs. oz. 100.684754hf; 34.70 BMI Method: General Appearance: Anxious, Mild Distress HEENT: PERRL/EOMI, Pharynx Normal, Moist Mucous Membranes Neck: Full Range of Motion, Normal Inspection, Non Tender, Supple Respiratory: Chest Non Tender, Normal Breath Sounds, No Accessory Muscle Use, Respiratory Distress (on BiPAP) Cardiovascular: Regular Rate, Rhythm, No Edema, No Gallop, No JVD, No Murmur, Normal Peripheral Pulses Capillary Refill: Less Than 3 Seconds Gastrointestinal: normal bowel sounds, non tender, soft; No distended, No guarding, No rebound Extremity: Normal Capillary Refill, Normal Inspection Neurologic/Psychiatric: Alert, Oriented x3, No Motor/Sensory Deficits, Normal Mood/Affect, nsh teacher II-XII Norm as Tested Skin: Normal Color, Warm/Dry Results Lab Laboratory Tests 05/09/21 17:19 05/10/21 02:46 05/11/21 05:30 MARCELLO GARCIA MD May 11, 2021 09:16
--- NOTE | 2021-05-11 11:04 | Occupational Therapy Eval ---
OT Evaluation-General/PLF Medical Diagnosis Admission Date May 09, 2021 at 21:56 Medical Diagnosis: Covid 19 + Onset Date: May 09, 2021 Therapy Diagnosis Therapy Diagnosis: Reduced adl status Height/Weight Height (Feet): 5 Height (Inches): 6 Weight (Pounds): 222 Precautions Precautions/Isolations: Airborne Isolation, Contact Isolation, Aspiration, Droplet Isolation, Fall Prevention, Pressure Ulcer Referral Physician: Reinaldo Referral Reason: Evaluation/Treatment Medical History Current History Pt found by family sitting in own feces and urine for multiple days. Pt reports she didn't realize she had been sitting in chair for more than a day. She was found to test positive for Covid 19. Per chart review and patient, she lives at home with her 95 y/o spouse and 45 year old grandson who is also mentally handicapped. Pt uses a cane at baseline. She is very [place] and unable to comprehend other questions regarding adl function. Reviewed History: Yes Social History Current Living Status: Spouse ADL-Prior Level of Function SCALE: Activities may be completed with or without assistive devices. 6-Wvrnhylmdq-ugeqvzv completes the activity by him/herself with no assistance from a helper. 5-Set-up or Clean-up Assistance-helper sets up or cleans up; patient completes activity. Success assists only prior to or following the activity. 4-Supervision or Touching Assistance-helper provides verbal cues and/or touching/steadying and/or contact guard assistance as patient completes activity. Assistance may be provided throughout the activity or intermittently. 3-Partial/Moderate Assistance-helper does LESS THAN HALF the effort. Success lifts, holds or supports trunk or limbs, but provides less than half the effort. 2-Substantial/Maximal Assistance-helper does MORE THAN HALF the effort. Success lifts or holds trunk or limbs and provides more than half the effort. 9-Apwwaewit-gilfhh does ALL the effort. Patient does none of the effort to complete the activity. Or, the assistance of 2 or more helpers is required for the patient to complete the activity. If activity was not attempted, code reason: 7-Patient Refused. 9-Not Applicable-not attempted and the patient did not perform the activity before the current illness, exacerbation or injury. 10-Not Attempted due to Environmental Limitations-(lack of equipment, weather restraints, etc.). 88-Not Attempted due to Medical Conditions or Safety Concerns. Self Care: Unknown Functional Cognition: Unknown OT Current Status Subjective Pt denies pain, but does verbalize being cold. She is very [place] and has difficu lty comprehending questions/cues. Appearance Returned to supine, all needs within reach. Mental Status/Objective Patient Orientation: Person, Confused Attachments: Lopez Catheter, IV, Oxygen Current Glasses/Contacts: Yes ADL-Treatment Lower Body Dressing (QC): 1 (per clinical judgment) On/Off Footwear (QC): 1 Toileting Hygiene (QC): 1 (lopez catheter) Pt is very [place], requires several verbal and visual cues to sit EOB with Min-mod a. Dependent to don socks. Sit<>stand: mod a x2. Severe kyphotic posture, cues to lift head/trunk. Pt stood for ~1 minute, only able to take 1-2 small steps towards HOB. Unsteady on feet. At this time, pt would require assist with all functional standing tasks secondary to poor balance. OT Rehab Nursing Tech Goals Senior Living Goals Time Frame: May 28, 2021 Oral Hygiene (QC): 4 Toileting Hygiene (QC): 4 Upper Body Dressing (QC): 4 Lower Body Dressing (QC): 3 On/Off Footwear (QC): 3 1=Demonstrate adherence to instructed precautions during ADL tasks. 2=Patient will verbalize/demonstrate understanding of assistive devices/modifications for ADL. 3=Patient will improve strength/tolerance for activity to enable patient to perform ADL's. OT Education/Plan Problem List/Assessment Assessment: Decreased Activ Tolerance, Decreased Safety Aware, Decreased UE Strength, Impaired Bed Mobility, Impaired Cognition, Impaired Funct Balance, Impaired I ADL's, Impaired Self-Care Skills Discharge Recommendations Plan/Recommendations: Continue POC Therapy Discharge Recommendati: Post Acute OT (ongoing assessment ) Treatment Plan/Plan of Care Treatment,Training & Education: Yes Patient would benefit from OT for education, treatment and training to promote independence in ADL's, mobility, safety and/or upper extremity function for ADL's. Plan of Care: ADL Retraining, Caregiver Training, Cognitive Retraining, Functional Mobility, Group Exercise/Act as Ind, UE Funct Exercise/Act Treatment Duration: May 28, 2021 Frequency: 3 times per week (3-5x/week) Estimated Hrs Per Day: .25 hour per day Time/GCodes Start Time: 10:38 Stop Time: 10:56 Total Time Billed (hr/min): 18 Billed Treatment Time 1 visit Nicci Arora OT May 11, 2021 11:04
--- NOTE | 2021-05-11 11:06 | Physical Therapy Evaluation ---
PT Evaluation-General Medical Diagnosis Admission Date May 09, 2021 at 21:56 Medical Diagnosis: covid 19 pneumonia Onset Date: May 09, 2021 Therapy Diagnosis Therapy Diagnosis: impaired mobility Height/Weight Height (Feet): 5 Height (Inches): 6 Weight (Pounds): 222 Precautions Precautions/Isolations: Airborne Isolation, Contact Isolation, Aspiration, Droplet Isolation, Fall Prevention, Pressure Ulcer Referral Physician: Hansa Najera DO Reason for Referral: Evaluation/Treatment Medical History Additional Medical History Past Medical History Surgeries: Eye Surgery, Gallbladder, Hysterectomy, Orthopedic, Tonsillectomy Pulmonary Embolism 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 1-Osxxuxxwqh-ufeqwvo completes the activity by him/herself with no assistance from a helper. 5-Set-up or Clean-up Assistance-helper sets up or cleans up; patient completes activity. [place] assists only prior to or following the activity. 4-Supervision or Touching Assistance-helper provides verbal cues and/or touching/steadying and/or contact guard assistance as patient completes activity. Assistance may be provided throughout the activity or intermittently. 3-Partial/Moderate Assistance-helper does LESS THAN HALF the effort. [place] lifts, holds or supports trunk or limbs, but provides less than half the effort. 2-Substantial/Maximal Assistance-helper does MORE THAN HALF the effort. [place] lifts or holds trunk or limbs and provides more than half the effort. 2-Pkiquolqf-tiuhqr does ALL the effort. Patient does none of the effort to complete the activity. Or, the assistance of 2 or more helpers is required for the patient to complete the activity. If activity was not attempted, code reason: 7-Patient Refused. 9-Not Applicable-not attempted and the patient did not perform the activity before the current illness, exacerbation or injury. 10-Not Attempted due to Environmental Limitations-(lack of equipment, weather restraints, etc.). 88-Not Attempted due to Medical Conditions or Safety Concerns. Bed Mobility: 6 Transfers (B,C,W/C): 6 Gait: 6 Indoor Mobility (Ambulation): Independent used SPC PT Evaluation-Current Subjective Patient in bed pre tx, agrees to PT, voices no complaints of pain. Patient is very [place] and communication is difficult. Pt/Family Goals none stated Objective Patient Orientation: Person, Place, Situation Attachments: Oxygen, Flores Catheter ROM/Strength ROM Lower Extremities WNL Strength Lower Extremities grossly 4/5 BLE Sensory Vision: Wears Glasses Hearing: Impaired Transfers Roll Left to Right (QC): 6 Sit to Lying (QC): 3 Lying to Sitting/Side of Bed(Q: 3 Sit to Stand (QC): 3 attempted to take a few steps to recliner after standing but patient could not, she says she is afraid of falling and wanted to sit back down and she says take it one step at a time. Patient stood for about 1 minute. Balance Sitting Static: Fair Sitting Dynamic: Fair Standing Static: Poor Standing Dynamic: Poor Assessment/Needs Patient in bed post tx with nurse call, phone, tray, all needs met. Patient has impaired mobility, strength, endurance. Patients O2 stayed above 90% during tx. Rehab Potential: Fair PT Shelter Goals Sales Associate Key Holder Goals PT Shelter Goals Time Frame: May 18, 2021 Roll Left & Right (QC): 6 Sit to Lying (QC): 6 Lying-Sitting on Side/Bed(QC): 6 Sit to Stand (QC): 4 Chair/Rzc-uj-Tocez Xfer(QC): 4 Walk 10 feet (QC): 4 PT Plan Problem List Problem List: Activity Tolerance, Functional Strength, Safety, Balance, Gait, Transfer, Bed Mobility, ROM Treatment/Plan Treatment Plan: Continue Plan of Care Treatment Plan: Bed Mobility, Education, Functional Activity Gely, Functional Strength, Gait, Safety, Therapeutic Exercise, Transfers Treatment Duration: May 18, 2021 Frequency: 6 times per week Estimated Hrs Per Day: .25 hour per day Patient and/or Family Agrees t: Yes Safety Risks/Education Patient Education: Correct Positioning, Safety Issues Teaching Recipient: Patient Teaching Methods: Demonstration, Discussion Response to Teaching: Reinforcement Needed Discharge Recommendations Plan Patient will perform bed mobility and transfer training, balance and endurance training, functional strengthening, gait training, and education, to improve functional mobility and independence at home. Therapy Discharge Recommendati: Post Acute PT Time/GCodes Time In: 1036 Time Out: 1055 Total Billed Treatment Time: 19 Total Billed Treatment 1 visit DEVIN Jorge' CORBY YATES PT May 11, 2021 11:05
[2021-05-11] MEDS: MICONAZOLE 2% POWDER (DESENEX AF) 90 GM TOP SCH ×2 (11:42→20:36)
--- NOTE | 2021-05-11 12:46 | Progress Note - Hospitalist ---
BRANT GARCIA 05/11/21 1246: Subjective HPI/CC On Admission Date Seen by Provider: May 11, 2021 Time Seen by Provider: 09:30 CC: Shortness of Breath HPI: This is an 86yoWF who presented to the ED on 05/10/21 with weakness and shortness of breath. Her niece, Jennifer, brought her to the ED after the patient was complaining of feeling "cold-like symptoms" for a period of 4 days. Jennifer's daughter drove to pickle cutter Shantel at her home and found her sitting in her own feces and urine. It was discovered that the patient was in this condition for approximately 4 days with little food or care. She lives at home with her 95yo and mentally handicapped 45yo son who she is the primary caregiver for. Upon arrival to the ED she tested positive for COVID and was placed on BiPAP due to respiratory distress. A CXR and CTA were obtained which suggested patchy interstitial infiltrates without any evidence of thrombus. Patient takes Coumadin 4mg daily due to a history of clots following surgical procedures. Jennifer, her niece, states that she has been taking this for years to prevent further thrombus formation. Otherwise, Jennifer states that she has no other significant past medical history. Subjective/Events-last exam Patient feeling much improved today. Wearing NC with 3L of oxygen and maintaining saturation during conversation. Endorses that she still has a productive cough but is finding it easier to breathe today. Asked if she could be moved out of the ICU today and to a floor bed. Review of Systems General: No Chills, No Night Sweats HEENT: No Head Aches, No Visual Changes, No Eye Pain Pulmonary: Dyspnea, Cough Cardiovascular: No: Chest Pain, Palpitations Gastrointestinal: No: Nausea, Vomiting, Abdominal Pain Genitourinary: No Dysuria, No Frequency Musculoskeletal: No: leg pain, foot pain Neurological: No: Weakness, Numbness Focused Exam Lactate Level 05/09/21 17:19: Lactic Acid Level 2.46*H 05/09/21 20:50: Lactic Acid Level 0.98 Respiratory: Chest Non Tender, Lungs Clear, Normal Breath Sounds, No Accessory Muscle Use, No Respiratory Distress Cardiovascular: Regular Rate, Rhythm, No Edema, No Gallop, No JVD, No Murmur, Normal Peripheral Pulses Capillary Refill: Less Than 3 Seconds Skin: normal color, warm/dry Objective Exam Vital Signs Vital Signs Date Time Temp Pulse Resp B/P (MAP) Pulse Ox O2 Delivery O2 Flow Rate FiO2 05/11/21 12:38 36.6 100 22 143/69 (93) 93 Nasal Cannula 3.00 05/10/21 08:15 40 Capillary Refill : Less Than 3 Seconds General Appearance: No Apparent Distress, Chronically ill HEENT: PERRL/EOMI, Pharynx Normal, Moist Mucous Membranes Neck: Full Range of Motion, Normal Inspection, Non Tender, Supple Respiratory: Chest Non Tender, Lungs Clear, Normal Breath Sounds, No Accessory Muscle Use, No Respiratory Distress Cardiovascular: Regular Rate, Rhythm, No Edema, No Gallop, No JVD, No Murmur, Normal Peripheral Pulses Gastrointestinal: Normal Bowel Sounds, Non Tender, Soft Rectal: Deferred Back: Normal Inspection Extremity: Normal Capillary Refill, Normal Inspection, Normal Range of Motion, No Pedal Edema Neurologic/Psychiatric: Alert, Oriented x3, No Motor/Sensory Deficits, Normal Mood/Affect, flatbed driver II-XII Norm as Tested Skin: Normal Color, Warm/Dry Results/Procedures Lab Laboratory Tests 05/11/21 05:30 Patient resulted labs reviewed. Imaging: Reviewed Imaging Report Assessment/Plan Assessment and Plan Assess & Plan/Chief Complaint Assessment: Acute Hypoxic Respiratory Failure COVID-19 Dehydration Malnourishment Plan: 3L NC - continue to wean as able . Transfer from ICU to floor Decadron 6mg Q24hr Empiric Antibiotics (Azithromycin D#3) (Ceftriaxone D#3) Holding Precedex Continue supportive care - K+/Mg2+ IVF 100mL/hr PT/OT Diagnosis/Problems Diagnosis/Problems (1) Respiratory failure Onset Date: ~ 05/09/2021 Status: Acute Assessment & Plan: 3L NC ABG . Advanced Directive Qualifiers: Qualified Codes: J96.01 - Acute respiratory failure with hypoxia (2) COVID Onset Date: ~ 05/09/2021 Status: Acute Assessment & Plan: Decadron Empiric Antibiotics (Azithryomcin D#3) (Ceftriaxone D#3) IVF/K+/Mg2+ CXR (05/09/21): patchy interstitial infiltrates CTA (05/09/21): no evidence of thrombus (3) Malnourished Status: Acute Assessment & Plan: IVF Health Claims Examiner consult School Bus Dispatcher consult HANSA NAJERA DO 05/12/21 0528: Subjective Subjective/Events-last exam Pt is doing a lot better Maintain on 2L on nasal cannula Overall doing very well Still very debilitated likely needs custodial Review of Systems Pulmonary: Cough Objective Exam General Appearance: No Apparent Distress, WD/WN, Chronically ill Respiratory: No Accessory Muscle Use, No Respiratory Distress, Decreased Breath Sounds Cardiovascular: Regular Rate, Rhythm Assessment/Plan Assessment and Plan Assess & Plan/Chief Complaint Covid protocol PT OT Oxygen wean Supervisory-Addendum Brief Verification & Attestation Participated in pt care: history, MDM, physical Personally performed: exam, history, MDM, supervision of care Care discussed with: Medical Student Procedures: n/a Results interpretation: Verified all documentation Verification and Attestation of Medical Student E/M Service A medical student performed and documented this service in my presence. I review ed and verified all information documented by the medical student and made modifications to such information, when appropriate. I personally performed the physical exam and medical decision making. Hansa Najera, May 12, 2021,05:27 BRANT GARCIA May 11, 2021 12:46 HANSA NAJERA DO May 12, 2021 05:28
[2021-05-11] MEDS: guaiFENesin/DM (ROBITUSSIN DM) 10 ML UDC PO PRN (18:05)
[2021-05-11] MEDS: cefTRIAXone 1 GM PRE-MIX 50 ML IV SCH (20:38)
[2021-05-11] MEDS: AZITHROMYCIN INJECTION 250 MG in NS (IVPB) 250 ML IV SCH (22:04)
[2021-05-12 00:01] VITALS: BP 167/79
[2021-05-12] MEDS: RT-ALBUTEROL HFA 8.5 GM INHALER IH SCH ×5 (02:56→21:15)
[2021-05-12 03:30] VITALS: BP 137/74
[2021-05-12 06:28] LABS: BASOPHILS % (AUTO) 0 % (0-10); EOSINOPHILS % (AUTO) 0 % (0-10); HEMATOCRIT 41 % (35-52); HEMOGLOBIN 13.3 g/dL (11.5-16.0); LYMPHOCYTES # (AUTO) 0.6 10^3/uL (1.0-4.0); LYMPHOCYTES % (AUTO) 5 % (12-44); MEAN CORPUSCULAR HEMOGLOBIN 30 pg (25-34); MEAN CORPUSCULAR HGB CONC 33 g/dL (32-36); MEAN CORPUSCULAR VOLUME 91 fL (80-99); MONOCYTES # (AUTO) 0.9 10^3/uL (0.0-1.0); MONOCYTES % (AUTO) 7 % (0-12); NEUTROPHILS % (AUTO) 87 % (42-75); PLATELET COUNT 291 10^3/uL (130-400); WHITE BLOOD COUNT 12.7 10^3/uL (4.3-11.0)
[2021-05-12 06:44] LABS: ALBUMIN 2.9 GM/DL (3.2-4.5); BILIRUBIN,TOTAL 0.3 MG/DL (0.1-1.0); CALCIUM 9.3 MG/DL (8.5-10.1); CREATININE SERUM 0.64 MG/DL (0.60-1.30); POTASSIUM 4.1 MMOL/L (3.6-5.0); TOTAL PROTEIN 6.5 GM/DL (6.4-8.2)
[2021-05-12] MEDS: amLODIPine 5 MG (NORVASC) TAB PO SCH (08:40)
[2021-05-12] MEDS: DOCUSATE SODIUM 100 MG (COLACE) CAP PO SCH ×2 (08:40→20:35)
[2021-05-12] MEDS: FLUoxetine HCL 10 MG (PROzac) CAPSULE/TABLET PO SCH (08:40)
[2021-05-12] MEDS: MICONAZOLE 2% POWDER (DESENEX AF) 90 GM TOP SCH ×2 (08:44→20:37)
[2021-05-12 08:48] VITALS: BP 145/67
--- NOTE | 2021-05-12 09:29 | Physical Therapy Daily Note ---
PT Daily Note-Current Subjective Patient in bed pre tx, agrees reluctantly to PT after encouragement, initially refused because she says she just doesn't feel like it. Voices no complaints of pain. Appearance Patient in recliner post tx with nurse call, phone, tray, all needs met. Mental Status Patient Orientation: Person, Place Attachments: Oxygen, Flores Catheter Transfers SCALE: Activities may be completed with or without assistive devices. 2-Mwliqdoslz-lbagaah completes the activity by him/herself with no assistance from a helper. 5-Set-up or Clean-up Assistance-helper sets up or cleans up; patient completes activity. [place] assists only prior to or following the activity. 4-Supervision or Touching Assistance-helper provides verbal cues and/or touching/steadying and/or contact guard assistance as patient completes activity. Assistance may be provided throughout the activity or intermittently. 3-Partial/Moderate Assistance-helper does LESS THAN HALF the effort. Coulters lifts, holds or supports trunk or limbs, but provides less than half the effort. 2-Substantial/Maximal Assistance-helper does MORE THAN HALF the effort. Coulters lifts or holds trunk or limbs and provides more than half the effort. 5-Vkzglnugu-cgnnnf does ALL the effort. Patient does none of the effort to complete the activity. Or, the assistance of 2 or more helpers is required for the patient to complete the activity. If activity was not attempted, code reason: 7-Patient Refused. 9-Not Applicable-not attempted and the patient did not perform the activity before the current illness, exacerbation or injury. 10-Not Attempted due to Environmental Limitations-(lack of equipment, weather restraints, etc.). 88-Not Attempted due to Medical Conditions or Safety Concerns. Lying to Sitting/Side of Bed(Q: 3 Sit to Stand (QC): 4 Chair/Dnx-to-Ngwav Xfer(QC): 4 cues for direction and safety Gait Training Distance: 5' Gait Persons Needed: 1 Gait Assistive Device: FWW slow, slumped posture Treatments bed mobility and transfers, ambulation Assessment Current Status: Fair Progress Improved transfers and was able to take a few steps. Patient is very [place] and make communication difficult. Patient was instructed to sit in recliner for as long as she can to help her lungs but she argues with therapist, doesn't seem to understand that she is sick with covid and just laying in bed will make her worse. When this is explained to patient she just argues. PT Intermediate Goals Payment Poster Goals PT Intermediate Goals Time Frame: May 18, 2021 Roll Left & Right (QC): 6 Sit to Lying (QC): 6 Lying-Sitting on Side/Bed(QC): 6 Sit to Stand (QC): 4 Chair/Zbd-mp-Gkslv Xfer(QC): 4 Walk 10 feet (QC): 4 PT Plan Problem List Problem List: Activity Tolerance, Functional Strength, Safety, Balance, Gait, Transfer, Bed Mobility, ROM Treatment/Plan Treatment Plan: Continue Plan of Care Treatment Plan: Bed Mobility, Education, Functional Activity Gely, Functional Strength, Gait, Safety, Therapeutic Exercise, Transfers Treatment Duration: May 18, 2021 Frequency: 6 times per week Estimated Hrs Per Day: .25 hour per day Patient and/or Family Agrees t: Yes Safety Risks/Education Patient Education: Gait Training, Transfer Techniques, Correct Positioning, Safety Issues Teaching Recipient: Patient Teaching Methods: Demonstration, Discussion Response to Teaching: Reinforcement Needed Time/GCodes Time In: 902 Time Out: 915 Total Billed Treatment Time: 13 Total Billed Treatment 1 visit FA 13CORBY ROBINS PT May 12, 2021 09:29
--- NOTE | 2021-05-12 10:33 | Occupational Ther Daily Note ---
OT Current Status-Daily Note Subjective Patient in bed pre tx, reluctant to participate. Encouragement required. Denies any pain. Pt is VERY [place] Appearance Left sitting in chair, all needs within reach, RN notified. Mental Status/Objective Patient Orientation: Person, Confused Attachments: Lopez Catheter, IV, Oxygen ADL-Treatment Therapy Code Descriptions/Definitions Functional [place] Measure: 0=Not Assessed/NA 4=Minimal Assistance 1=Total Assistance 5=Supervision or Setup 2=Maximal Assistance 6=Modified [place] 3=Moderate Assistance 7=Complete IndependenceSCALE: Activities may be completed with or without assistive devices. 7-Xpqwpefhnz-pqfmtsg completes the activity by him/herself with no assistance from a helper. 5-Set-up or Clean-up Assistance-helper sets up or cleans up; patient completes activity. [place] assists only prior to or following the activity. 4-Supervision or Touching Assistance-helper provides verbal cues and/or touching/steadying and/or contact guard assistance as patient completes activity. Assistance may be provided throughout the activity or intermittently. 3-Partial/Moderate Assistance-helper does LESS THAN HALF the effort. Stephens lifts, holds or supports trunk or limbs, but provides less than half the effort. 2-Substantial/Maximal Assistance-helper does MORE THAN HALF the effort. Stephens lifts or holds trunk or limbs and provides more than half the effort. 3-Qfqjvuxvd-kzmkov does ALL the effort. Patient does none of the effort to complete the activity. Or, the assistance of 2 or more helpers is required for the patient to complete the activity. If activity was not attempted, code reason: 7-Patient Refused. 9-Not Applicable-not attempted and the patient did not perform the activity before the current illness, exacerbation or injury. 10-Not Attempted due to Environmental Limitations-(lack of equipment, weather restraints, etc.). 88-Not Attempted due to Medical Conditions or Safety Concerns. Eating (QC): 5 On/Off Footwear: 1 Toileting Hygiene (QC): 1 (lopez catheter) Toilet Transfer (QC): 3 (anticipate assist with clothing management) Pt attempting to eat breakfast in supine at therapy arrival. Encouragement and education on sitting upright for all meals. Pt in denial about being sick or having COVID. Min a to sit upright with extra time needed as pt often will stop secondary to coughing episodes. Sit<>stand: min A with bed slightly elevated. She ambulated ~5 feet to recliner with min a and consistent cues for walker management. Severe kyphotic posture in standing. Pt coughing throughout all mobility. Once in sitting, pt requests to return to bed and often argues with therapist about how she doesn't need to sit up because she isn't sick. Pt in agreement to sit for 1 hour if tolerable, RN notified. Education OT Patient Education: Correct positioning, Energy conservation, Progress toward Goal/Update tx plan, Purpose of tx/functional activities, Safety issues, Transfer techniques Teaching Recipient: Patient Teaching Methods: Discussion Response to Teaching: Reinforcement Needed OT Ophthalmic Aide Goals Alf Goals Time Frame: May 28, 2021 Oral Hygiene (QC): 4 Toileting Hygiene (QC): 4 Upper Body Dressing (QC): 4 Lower Body Dressing (QC): 3 On/Off Footwear (QC): 3 1=Demonstrate adherence to instructed precautions during ADL tasks. 2=Patient will verbalize/demonstrate understanding of assistive dev ices/modifications for ADL. 3=Patient will improve strength/tolerance for activity to enable patient to perform ADL's. OT Education/Plan Problem List/Assessment Assessment: Decreased Activ Tolerance, Decreased Safety Aware, Decreased UE Strength, Impaired Cognition, Impaired Funct Balance, Impaired I ADL's, Impaired Self-Care Skills Discharge Recommendations Plan/Recommendations: Continue POC Treatment Plan/Plan of Care Treatment,Training & Education: Yes Patient would benefit from OT for education, treatment and training to promote independence in ADL's, mobility, safety and/or upper extremity function for ADL's. Plan of Care: ADL Retraining, Caregiver Training, Cognitive Retraining, Functional Mobility, Group Exercise/Act as Ind, UE Funct Exercise/Act Treatment Duration: May 28, 2021 Frequency: 3 times per week (3-5x/week) Estimated Hrs Per Day: .25 hour per day Rehab Potential: Fair Time/GCodes Start Time: 09:03 Stop Time: 09:16 Total Time Billed (hr/min): 13 Billed Treatment Time 1 visit Nicci Ballesteros OT May 12, 2021 10:32
[2021-05-12 11:36] LABS: INR 3.6 (0.8-1.4); PROTHROMBIN TIME PATIENT 36.3 SEC (12.2-14.7)
[2021-05-12 12:27] VITALS: BP 144/65
--- NOTE | 2021-05-12 13:22 | Progress Note - Hospitalist ---
BRANT GARCIA 05/12/21 1322: Subjective HPI/CC On Admission Date Seen by Provider: May 12, 2021 Time Seen by Provider: 10:30 CC: Shortness of Breath HPI: This is an 86yoWF who presented to the ED on 05/10/21 with weakness and shortness of breath. Her niece, Jennifer, brought her to the ED after the patient was complaining of feeling "cold-like symptoms" for a period of 4 days. Jennifer's daughter drove to pick and shovel worker Shantel at her home and found her sitting in her own feces and urine. It was discovered that the patient was in this condition for approximately 4 days with little food or care. She lives at home with her 95yo and mentally handicapped 45yo son who she is the primary caregiver for. Upon arrival to the ED she tested positive for COVID and was placed on BiPAP due to respiratory distress. A CXR and CTA were obtained which suggested patchy interstitial infiltrates without any evidence of thrombus. Patient takes Coumadin 4mg daily due to a history of clots following surgical procedures. Jennifer, her niece, states that she has been taking this for years to prevent further thrombus formation. Otherwise, Jennifer states that she has no other significant past medical history. Subjective/Events-last exam Patient feeling improved today. Complaining of productive cough; however, she now states that she wants to be in the hospital to help get the care she needs. During conversation, the patient is occasionally misguided and tangential, but she is alert and oriented x3. She continues to discuss taking care of her as well as being upset with her grandson for giving her COVID. Review of Systems General: No Chills, No Night Sweats; Fatigue HEENT: No Head Aches, No Visual Changes, No Eye Pain Pulmonary: No Dyspnea; Cough Cardiovascular: No: Chest Pain, Palpitations Gastrointestinal: No: Nausea, Vomiting, Abdominal Pain Genitourinary: No Dysuria, No Frequency Musculoskeletal: No: leg pain, foot pain Neurological: No: Weakness, Numbness Focused Exam Lactate Level 05/09/21 17:19: Lactic Acid Level 2.46*H 05/09/21 20:50: Lactic Acid Level 0.98 Respiratory: Chest Non Tender, Lungs Clear, Normal Breath Sounds, No Accessory Muscle Use, No Respiratory Distress Cardiovascular: Regular Rate, Rhythm, No Edema, No Gallop, No JVD, No Murmur, Normal Peripheral Pulses Capillary Refill: Less Than 3 Seconds Skin: warm/dry Objective Exam Vital Signs Vital Signs Date Time Temp Pulse Resp B/P (MAP) Pulse Ox O2 Delivery O2 Flow Rate FiO2 05/12/21 12:27 36.6 90 20 144/65 (91) 98 Nasal Cannula 3.00 05/10/21 08:15 40 Capillary Refill : Less Than 3 Seconds General Appearance: No Apparent Distress, Chronically ill HEENT: PERRL/EOMI, Pharynx Normal, Moist Mucous Membranes Neck: Full Range of Motion, Normal Inspection, Non Tender, Supple Respiratory: Chest Non Tender, Lungs Clear, Normal Breath Sounds, No Accessory Muscle Use, No Respiratory Distress Cardiovascular: Regular Rate, Rhythm, No Edema, No Gallop, No JVD, No Murmur, Normal Peripheral Pulses Gastrointestinal: Normal Bowel Sounds, Non Tender, Soft Rectal: Deferred Back: Normal Inspection Extremity: Normal Capillary Refill, Normal Inspection Neurologic/Psychiatric: Alert, Oriented x3, No Motor/Sensory Deficits, Normal Mood/Affect, turbinated bone grinder II-XII Norm as Tested Skin: Normal Color, Warm/Dry Results/Procedures Lab Laboratory Tests 05/12/21 06:15 Patient resulted labs reviewed. Imaging: Reviewed Imaging Report Assessment/Plan Assessment and Plan Assess & Plan/Chief Complaint Assessment: Acute Hypoxic Respiratory Failure COVID-19 on 05/09/21 Dehydration Malnourishment Hx of Thrombus Formation Plan: 3L NC - continue to wean as able Decadron 6mg Q24hr Empiric Antibiotics (Azithromycin D#4) (Ceftriaxone D#4) Continue supportive care measures Monitor INR for safe resumption of Warfarin DC IVF on 05/11/21 PT/OT Diagnosis/Problems Diagnosis/Problems (1) Respiratory failure Onset Date: ~ 05/09/2021 Status: Acute Assessment & Plan: 3L NC Wean oxygen as tolerated Qualifiers: Qualified Codes: J96.01 - Acute respiratory failure with hypoxia (2) COVID Onset Date: ~ 05/09/2021 Status: Acute Assessment & Plan: Decadron Empiric Antibiotics (Azithryomcin D#4) (Ceftriaxone D#4) DC IVF 05/11/21 CXR (05/09/21): patchy interstitial infiltrates CTA (05/09/21): no evidence of thrombus (3) Malnourished Status: Acute Assessment & Plan: DC IVF 05/11/21 Maintaining PO intake Smoking Pipe Repairer consult Bed Operator consult (4) History of pulmonary embolism Status: Chronic Assessment & Plan: Holding Warfarin 2/2 INR Monitor INR HANSA NAJERA DO 05/13/21 0533: Subjective Subjective/Events-last exam Pt is doing a lot better Was just notified that her at 89 years old had and it was expected due to a cancerous tumor Pt feels like she is improved Her mentation is somewhat diminished, suspicious for dementia Her bar pilot is at the bedside today Review of Systems Pulmonary: Dyspnea, Cough Objective Exam General Appearance: No Apparent Distress, WD/WN, Chronically ill Respiratory: Lungs Clear, Normal Breath Sounds Cardiovascular: Regular Rate, Rhythm Neurologic/Psychiatric: Alert, Oriented x3 Assessment/Plan Assessment and Plan Assess & Plan/Chief Complaint INR reviewed Antibiotics Oxygen Supervisory-Addendum Brief Verification & Attestation Participated in pt care: history, MDM, physical Personally performed: exam, history, MDM, supervision of care Care discussed with: Medical Student Procedures: n/a Results interpretation: Verified all documentation Verification and Attestation of Medical Student E/M Service A medical student performed and documented this service in my presence. I reviewed and verified all information documented by the medical student and made modifications to such information, when appropriate. I personally performed the physical exam and medical decision making. Hansa Najera, May 13, 2021,05:32 BRANT GARCIA May 12, 2021 13:22 HANSA NAJERA DO May 13, 2021 05:33
[2021-05-12 16:04] VITALS: BP 141/60
[2021-05-12 20:06] VITALS: BP 164/70
[2021-05-12] MEDS: cefTRIAXone 1 GM PRE-MIX 50 ML IV SCH (20:33)
[2021-05-12] MEDS: guaiFENesin/DM (ROBITUSSIN DM) 10 ML UDC PO PRN ×2 (20:35)
[2021-05-12] MEDS: AZITHROMYCIN INJECTION 250 MG in NS (IVPB) 250 ML IV SCH (21:32)
[2021-05-13 00:19] VITALS: BP 174/92
[2021-05-13] MEDS: RT-ALBUTEROL HFA 8.5 GM INHALER IH SCH ×2 (02:41→07:33)
[2021-05-13 04:00] VITALS: BP 163/71
[2021-05-13 06:07] LABS: BASOPHILS % (AUTO) 0 % (0-10); EOSINOPHILS % (AUTO) 0 % (0-10); HEMATOCRIT 41 % (35-52); HEMOGLOBIN 13.3 g/dL (11.5-16.0); LYMPHOCYTES # (AUTO) 0.9 10^3/uL (1.0-4.0); LYMPHOCYTES % (AUTO) 7 % (12-44); MEAN CORPUSCULAR HEMOGLOBIN 30 pg (25-34); MEAN CORPUSCULAR HGB CONC 32 g/dL (32-36); MEAN CORPUSCULAR VOLUME 92 fL (80-99); MEAN PLATELET VOLUME 10.4 fL (9.0-12.2); MONOCYTES % (AUTO) 8 % (0-12); NEUTROPHILS # (AUTO) 10.1 10^3/uL (1.8-7.8); NEUTROPHILS % (AUTO) 82 % (42-75); PLATELET COUNT 337 10^3/uL (130-400); WHITE BLOOD COUNT 12.3 10^3/uL (4.3-11.0)
[2021-05-13 06:16] LABS: ALBUMIN 2.9 GM/DL (3.2-4.5)
[2021-05-13 06:17] LABS: POTASSIUM 4.5 MMOL/L (3.6-5.0)
[2021-05-13 06:18] LABS: CALCIUM 8.9 MG/DL (8.5-10.1)
[2021-05-13 06:19] LABS: TOTAL PROTEIN 6.5 GM/DL (6.4-8.2)
[2021-05-13 06:21] LABS: BILIRUBIN,TOTAL 0.3 MG/DL (0.1-1.0)
[2021-05-13 06:23] LABS: CREATININE SERUM 0.63 MG/DL (0.60-1.30)
[2021-05-13 06:43] LABS: INR 3.6 (0.8-1.4); PROTHROMBIN TIME PATIENT 36.7 SEC (12.2-14.7)
[2021-05-13 07:45] VITALS: BP 163/71
[2021-05-13 08:32] VITALS: BP 153/77
--- NOTE | 2021-05-13 08:42 | Physical Therapy Progress Note ---
Therapy Progress Note As soon as therapist enters room patient states she isn't doing therapy or getting out of bed today. Patient is upset about her passing and she says she is sick and isn't going to get out of bed because of that. Explained to patient that staying in bed will not get her better and she needs to get up to help her lungs but she refuses saying "i'm not doing anything today and that's final". CORBY YATES PT May 13, 2021 08:42
[2021-05-13] MEDS: amLODIPine 5 MG (NORVASC) TAB PO SCH (08:43)
[2021-05-13] MEDS: FLUoxetine HCL 10 MG (PROzac) CAPSULE/TABLET PO SCH (08:43)
[2021-05-13] MEDS: DOCUSATE SODIUM 100 MG (COLACE) CAP PO SCH (08:43)
[2021-05-13] MEDS: MICONAZOLE 2% POWDER (DESENEX AF) 90 GM TOP SCH (08:44)
--- NOTE | 2021-05-13 09:13 | Occ Therapy Progress Note ---
Therapy Progress Note Pt refusing to get OOB or even move today. Pt in distress over 's passing. Pt stated multiple times that she was sick, passed yesterday and that she was not going to do anything today. Pt then stated that she just wanted to go home and that she would move when she got to go home. Pt would not listen when attempted education on sitting up will make her stronger and get her home more quickly. Will see pt at next available time. 1 refusal [id number] MARNIE PALOMINO May 13, 2021 09:12
[2021-05-13] MEDS ORDERED: CEFD300C3 PO (11:30)
[2021-05-13] MEDS ORDERED: DEXA6TAB6 PO (11:30)
[2021-05-13] MEDS ORDERED: WARF-47 PO (11:30)
[2021-05-13] MEDS ORDERED: TRAM50TA3 PO (11:30)
[2021-05-13] MEDS ORDERED: MICO90PO TOP (11:30)
--- NOTE | 2021-05-13 11:37 | Progress Note ---
BRANT GARCIA 05/13/21 1137: Progress Note HOSPITAL COURSE: Shantel Lyles is an 86yoWF who presented to the ED on 05/09/21 with weakness and shortness of breath. Her niece, Jennifer, brought her to the ED after the patient was complaining of feeling "cold-like symptoms" for a period of 4 days. Jennifer's daughter drove to nut picker Shantel at her home and found her sitting in her own feces and urine. It was discovered that the patient was in this condition for approximately 4 days with little food or care. 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 Upon arrival to the ED she tested positive for COVID and was placed on BiPAP due to respiratory distress and admitted to the ICU. A CXR and CTA were obtained which suggested patchy interstitial infiltrates without any evidence of thrombus. She was in the ICU from 05/09/21 to 05/11/21. Patient was safely weaned to 3L via NC and transferred to the floor on 05/11/21. She remained on the floor in COVID contact isolation during the remainder of her hospital admission. During her admission, she received standard COVID treatment protocol including steroids, empiric antibiotics, and supportive measures. Of note, the patient takes Warfarin 4mg PO daily for a history of thrombus formation following previous surgical procedures. Her INR was monitored during her admission and Warfarin was held. The patient will resume Warfarin 2mg PO daily starting on 05/14/21. HANSA NAJERA DO 05/13/212: Supervisory-Addendum Brief Verification & Attestation Participated in pt care: history, MDM, physical Personally performed: exam, history, MDM, supervision of care Care discussed with: Medical Student Procedures: n/a Results interpretation: Verified all documentation Verification and Attestation of Medical Student E/M Service A medical student performed and documented this service in my presence. I reviewed and verified all information documented by the medical student and made modifications to such information, when appropriate. I personally performed the physical exam and medical decision making. Hansa Najera, May 13, 2021,21:32 BRANT GARCIA May 13, 2021 11:37 HANSA NAJERA DO May 13, 2021 21:32
--- NOTE | 2021-05-13 11:47 | D/C HH Face to Face Order ---
D/C HH Face to Face Orders Reconcile Patient Problems Problems Reviewed?: Yes Instructions for Patient HH Patient Instructions/FollowUp: PCP 1 week Physician to follow Patient: PCP Discharge Diet for Home: No Restrictions Patient Problems: COVID Patient Data-Allergies,Ht & Wt Patient Allergies: Coded Allergies: Sulfa (Sulfonamide Antibiotics) (Verified Allergy, Unknown, 05/17/13) Uncoded Allergies: KFLEX (Allergy, Severe, RASH, 05/17/13) Height (Feet): 5 Height (Inches): 6 Weight (Pounds): 222 Home Health Need/Face to Face Date of Face to Face: May 13, 2021 Clinical Findings: Generalized weakness and fatigue, Muscle weakness, Shortness of breath I have seen Pt [id number]: Yes Discharged To: Home Diagnosis/Conditions: COVID Patient is Homebound due to: CognItive deficits, Naveen fall risk due to instabilty, Muscle weakness, Shortness of breath/distress Homebound Status Due to the above stated illness, injury or surgical procedure (medical condition or diagnosis) and associated clinical findings, the patient is homebound because of his/her inability to leave home except with aid of a supportive device and/or person AND leaving the home requires a considerable and taxing effort or is medically contraindicated. Pt req the following assistanc: [facility] Nursing Orders Home Health Services Order: Nursing Services, Software Quality Assurance Analyst-Evaluate & Treat, Physical Therapy-Evaluate & Treat Home Health Infusion Therapy Line Start Date: May 09, 2021 Certify Stmt I certify that this patient is under my care and that I, a nurse practitioner or a physician; a catalog library assistant working with me, had a face to face encounter that - meets the physician face to face encounter requirements with this patient as dated. JENNIFER SEAMAN DO May 13, 2021 11:47
--- NOTE | 2021-05-13 11:48 | Discharge Summary ---
Discharge Summary Hospital Course Was the Problem List Reviewed?: Yes Problems/Dx: (1) Respiratory failure Status: Acute Qualifiers: Qualified Codes: J96.01 - Acute respiratory failure with hypoxia (2) COVID Status: Acute (3) Malnourished Status: Acute (4) History of pulmonary embolism Status: Chronic Hospital Course Date of Admission: May 09, 2021 at 21:56 Admission Diagnosis : Family Physician/Provider: Jeromy Ortiz MD Date of Discharge: 05/13/21 Discharge Diagnosis: COVID-19 pneumonia, acute hypoxic respiratory failure with hypercapnia requiring BiPAP in ICU, CO2 narcosis, dementia Hospital Course: BRANT GARCIA 05/13/21 1137: Progress Note HOSPITAL COURSE: Shantel Lyles is an 86yoWF who presented to the ED on 05/09/21 with weakness and shortness of breath. Her niece, Jennifer, brought her to the ED after the p atient was complaining of feeling "cold-like symptoms" for a period of 4 days. Jennifer's daughter drove to brain picker Shantel at her home and found her sitting in her own feces and urine. It was discovered that the patient was in this condition for approximately 4 days with little food or care. 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 Upon arrival to the ED she tested positive for COVID and was placed on BiPAP due to respiratory distress and admitted to the ICU. A CXR and CTA were obtained which suggested patchy interstitial infiltrates without any evidence of thrombus. She was in the ICU from 05/09/21 to 05/11/21. Patient was safely weaned to 3L via NC and transferred to the floor on 05/11/21. She remained on the floor in COVID contact isolation during the remainder of her hospital admission. During her admission, she received standard COVID treatment protocol including steroids, empiric antibiotics, and supportive measures. Of note, the patient takes Warfarin 4mg PO daily for a history of thrombus formation following previous surgical procedures. Her INR was monitored during her admission and Warfarin was held. The patient will resume Warfarin 2mg PO daily starting on 05/14/21. Labs and Pending Lab Test: Laboratory Tests 05/13/21 05:54: White Blood Count 12.3H, Red Blood Count 4.47, Hemoglobin 13.3, Hematocrit 41, Mean Corpuscular Volume 92, Mean Corpuscular Hemoglobin 30, Mean Corpuscular Hemoglobin Concent 32, Red Cell Distribution Width 13.0, Platelet Count 337, Mean Platelet Volume 10.4, Immature Granulocyte % (Auto) 2, Neutrophils (%) (Auto) 82H, Lymphocytes (%) (Auto) 7L, Monocytes (%) (Auto) 8, Eosinophils (%) (Auto) 0, Basophils (%) (Auto) 0, Neutrophils # (Auto) 10.1H, Lymphocytes # (Auto) 0.9L, Monocytes # (Auto) 1.0, Eosinophils # (Auto) 0.0, Basophils # (Auto) 0.0, Immature Granulocyte # (Auto) 0.3H, Prothrombin Time 36.7H, INR Comment 3.6H, Sodium Level 136, Potassium Level 4.5, Chloride Level 99, Carbon Dioxide Level 28, Anion Gap 9, Blood Urea Nitrogen 16, Creatinine 0.63, Estimat Glomerular Filtration Rate 87, BUN/Creatinine Ratio 25, Glucose Level 113H, Calcium Level 8.9, Corrected Calcium 9.8, Total Bilirubin 0.3, Aspartate Amino Transf (AST/SGOT) 17, Alanine Aminotransferase (ALT/SGPT) 11, Alkaline Phosphatase 57, Total Protein 6.5, Albumin 2.9L Microbiology 05/10/21 MRSA Screen - Final, Complete MRSA not isolated 05/09/21 Blood Culture - Preliminary, Resulted No growth Home Meds Active Decadron (Dexamethasone) 6 Mg Tablet 6 Mg PO DAILY Cefdinir 300 Mg Capsule 300 Mg PO BID Warfarin Sodium 2 Mg Tablet 2 Mg PO DAILY Lotrimin AF (Miconazole Nitrate) 90 Gm Powder 0 Gm TOP BID Tramadol HCl 50 Mg Tablet 50 Mg PO Q12H PRN Reported Mucinex D ER 600-60 mg Tablet (Guaifenesin/Pseudoephedrne HCl) 1 Each Tab.er.12h 1 Each PO Q12H PRN Calcium + Vitamin D Tablet (Calcium Carbonate/Vitamin D3) 1 Each Tablet 1 Each PO DAILY Fluoxetine HCl 10 Mg Capsule 10 Mg PO DAILY Pravastatin Sodium 40 Mg Tablet 40 Mg PO DAILY Warfarin Sodium 4 Mg Tablet 4 Mg PO DAILY Amlodipine Besylate 5 Mg Tablet 5 Mg PO DAILY Assessment/Pt Instructions PCP in 1 week Discharge Planning: <30 minutes discharge planning Discharge Instructions Discharge Diet: No Restrictions Activity as Tolerated: Yes Discharge Physical Examination Vital Signs Vital Signs Date Time Temp Pulse Resp B/P (MAP) Pulse Ox O2 Delivery O2 Flow Rate FiO2 05/13/21 08:51 Nasal Cannula 2.00 05/13/21 08:32 36.7 71 22 153/77 (102) 91 05/13/21 07:45 21 General Appearance: No Apparent Distress, WD/WN, Chronically ill Respiratory: Lungs Clear Cardiovascular: Regular Rate, Rhythm Neurologic/Psychiatric: Alert, Oriented x3 Allergies: Coded Allergies: Sulfa (Sulfonamide Antibiotics) (Verified Allergy, Unknown, 05/17/13) Uncoded Allergies: KFLEX (Allergy, Severe, RASH, 05/17/13) Discharge Summary Date of Admission May 09, 2021 at 21:56 Date of Discharge Discharge Date: May 13, 2021 Admission Diagnosis Acute Hypoxic Respiratory Failure Discharge Diagnosis INR reviewed Antibiotics Oxygen (1) Respiratory failure Onset Date: ~ 05/09/2021 Status: Acute Assessment & Plan: 3L NC Wean oxygen as tolerated Qualifiers: Qualified Codes: J96.01 - Acute respiratory failure with hypoxia (2) COVID Onset Date: ~ 05/09/2021 Status: Acute Assessment & Plan: Decadron Empiric Antibiotics (Azithryomcin D#4) (Ceftriaxone D#4) DC IVF 05/11/21 CXR (05/09/21): patchy interstitial infiltrates CTA (05/09/21): no evidence of thrombus (3) Malnourished Status: Acute Assessment & Plan: DC IVF 05/11/21 Maintaining PO intake Equipment Processor consult Loom Mechanic consult (4) History of pulmonary embolism Status: Chronic Assessment & Plan: Holding Warfarin 2/2 INR Monitor INR JENNIFER SEAMAN DO May 13, 2021 11:48
[2021-05-13 12:00] VITALS: BP 143/65
== END 2021-05-13 16:45 | disposition home or self-care (01) | DRG 177 ==
LOC: EDUNIT# 17:04 → ER FS 17:05 → 4TH 21:56 → ICU 05-10 01:42 → 4TH 05-11 11:28
PROVIDERS: ADMIT Internal Medicine; ATTEND Internal Medicine
PROC: 5A09357 Assistance with Respiratory Ventilation, Less than 24 Consecutive Hours, Continuous Positive Airway Pressure (ICD-10-PCS; principal; 2021-05-10)
DX: U07.1 COVID-19 (principal); J96.01 Acute respiratory failure with hypoxia; J12.82 Pneumonia due to coronavirus disease 2019; J96.02 Acute respiratory failure with hypercapnia; E46 Unspecified protein-calorie malnutrition; Z86.711 Personal history of pulmonary embolism; I10 Essential (primary) hypertension; K21.9 Gastro-esophageal reflux disease without esophagitis; M19.90 Unspecified osteoarthritis, unspecified site; F32.A Depression, unspecified; Z79.01 Long term (current) use of anticoagulants; Z79.899 Other long term (current) drug therapy; E86.0 Dehydration; F03.90 Unspecified dementia, unspecified severity, without behavioral disturbance, psychotic disturbance, mood disturbance, and anxiety; Z68.34 Body mass index [BMI] 34.0-34.9, adult
CPT/HCPCS: 36415; 36600; 71045; 71275; 80053; 82805; 82947; 83605; 83735; 83880; 84145; 84484; 85007; 85025; 85027; 85379; 85610; 85730; 87040; 87081; 87636; 87804; 93005; 93041; 94640; 94660; 94664; 94761

== ENCOUNTER → 2021-05-25 | Outpatient (CLI) | payer MEDICARE ==
[~2021-05-25] MED LIST changes: +AMLO-250 PO; +CALC-140 PO; +CEFD300C3 PO; +DEXA6TAB6 PO; +FLUO10CA33 PO; +GUAI-370 PO; +MICO90PO TOP; +PRAV40TA2 PO; +PROM5SYR PO; +TRAM50TA3 PO; +WARF-47 PO; +WARF4TAB3 PO
[2021-05-25 10:19] LABS: INR 1.3 (0.8-1.4); PROTHROMBIN TIME PATIENT 16.4 SEC (12.2-14.7)
== END ==
LOC: IHC 09:34
PROVIDERS: ATTEND Pediatrics
DX: Z51.81 Encounter for therapeutic drug level monitoring (principal); Z79.01 Long term (current) use of anticoagulants
CPT/HCPCS: 85610

== ENCOUNTER → 2021-06-01 | Outpatient (CLI) | payer MEDICARE ==
[2021-06-01 16:51] LABS: INR 1.8 (0.8-1.4)
== END ==
LOC: IHC 15:57
PROVIDERS: ATTEND Pediatrics
DX: Z86.711 Personal history of pulmonary embolism (principal); Z79.01 Long term (current) use of anticoagulants
CPT/HCPCS: 85610

== ENCOUNTER → 2021-06-09 | Outpatient (CLI) | payer MEDICARE ==
[2021-06-09 13:15] LABS: INR 1.7 (0.8-1.4); PROTHROMBIN TIME PATIENT 20.8 SEC (12.2-14.7)
== END ==
LOC: IHC 12:53
PROVIDERS: ATTEND Pediatrics
DX: Z79.01 Long term (current) use of anticoagulants (principal)
CPT/HCPCS: 85610

== ENCOUNTER → 2021-06-22 | Outpatient (CLI) | payer MEDICARE ==
[2021-06-22 14:57] LABS: PROTHROMBIN TIME PATIENT 22.8 SEC (12.2-14.7)
== END ==
LOC: IHC 14:40
PROVIDERS: ATTEND Pediatrics
DX: Z79.01 Long term (current) use of anticoagulants (principal)
CPT/HCPCS: 85610

== ENCOUNTER 2021-08-13 19:06 | Emergency (ER) | payer MEDICARE ==
[~2021-08-13] VITALS: Ht 167 cm; Wt 87.0 kg
[2021-08-13 19:25] VITALS: BP 139/77
--- NOTE | 2021-08-13 19:47 | ED Cough/URI ---
General Chief Complaint: Cough/Cold/Flu Symptoms Stated Complaint: ACUTE COUGH Nursing Triage Note: pt presents with a c/o sob and cough. reports productive cough x4days. reports having covid in may and being on oxygen at home 2L. reports increased fatigue. Source: patient Exam Limitations: no limitations History of Present Illness Date Seen by Provider: August 13, 2021 Time Seen by Provider: 19:15 Initial Comments 86-year-old female with prior history of DVT on warfarin and COVID in May with chronic respiratory failure on 2 L oxygen coming in due to worsening cough. Been ongoing for 4 days, productive with brown sputum. No fever. No chest pain or significant shortness of breath beyond her usual. She is otherwise denying any other acute complaints. Allergies and Home Medications Allergies Coded Allergies: Sulfa (Sulfonamide Antibiotics) (Verified Allergy, Unknown, 05/17/13) Uncoded Allergies: KFLEX (Allergy, Severe, RASH, 05/17/13) Patient Home Medication List Home Medication List Reviewed: Yes Amlodipine Besylate (Amlodipine Besylate) 5 Mg Tablet, 5 MG PO DAILY, (Reported) Entered as Reported by: FIDENCIO JASSO on 05/10/21 140 Calcium Carbonate/Vitamin D3 (Calcium + Vitamin D Tablet) 1 Each Tablet, 1 EACH PO DAILY, (Reported) Entered as Reported by: FIDENCIO JASOS on 05/10/21 140 Cefdinir (Cefdinir) 300 Mg Capsule, 300 MG PO BID Prescribed by: JENNIFER SEAMAN on 05/13/21 113 Dexamethasone (Decadron) 6 Mg Tablet, 6 MG PO DAILY Prescribed by: JENNIFER SEAMAN on 05/13/21 113 Doxycycline Hyclate (Doxycycline Hyclate) 100 Mg Tablet, 100 MG PO BID Prescribed by: BRANT MEZA on 08/13/212012 Fluoxetine HCl (Fluoxetine HCl) 10 Mg Capsule, 10 MG PO DAILY, (Reported) Entered as Reported by: FIDENCIO JASSO on 05/10/21 140 Guaifenesin/Pseudoephedrne HCl (Mucinex D ER 600-60 mg Tablet) 1 Each Tab.er.12h, 1 EACH PO Q12H PRN for CONGESTION, (Reported) Entered as Reported by: FIDENCIO JASSO on 05/10/21 140 Miconazole Nitrate (Lotrimin AF) 90 Gm Powder, 0 GM TOP BID Prescribed by: JENNIFER SEAMAN on 05/13/21 1130 Pravastatin Sodium (Pravastatin Sodium) 40 Mg Tablet, 40 MG PO DAILY, (Reported) Entered as Reported by: FIDENCIO JASSO on 05/10/21 1401 Tramadol HCl (Tramadol HCl) 50 Mg Tablet, 50 MG PO Q12H PRN for PAIN-MODERATE (5-7) Prescribed by: JENNIFER SEAMAN on 05/13/21 1131 Warfarin Sodium (Warfarin Sodium) 2 Mg Tablet, 2 MG PO DAILY Prescribed by: JENNIFER SEAMAN on 05/13/21 1130 Review of Systems Review of Systems Constitutional: No chills, No fever EENTM: No blurred vision Respiratory: cough; No short of breath Cardiovascular: No chest pain Gastrointestinal: No abdominal pain Genitourinary: no symptoms reported Musculoskeletal: no symptoms reported Skin: no symptoms reported Psychiatric/Neurological: No Symptoms Reported Hematologic/Lymphatic: No Symptoms Reported Immunological/Allergic: no symptoms reported All Other Systems Reviewed Negative Unless Noted: Yes Past Dghgkyk-Wwhfpj-Xzthww Hx Patient Social History Tobacco Use?: No Substance use?: No Alcohol Use?: No Pt feels they are or have been: No Immunizations Up To Date Influenza Vaccine Up-to-Date: Yes; Up-to-Date First/Initial COVID19 Vaccinat: unknown date Second COVID19 Vaccination Riley: unknown date Past Medical History Surgery/Hospitalization HX: pt told me :its in my chart" Surgeries: Yes (STONE ON LIVER DUCT) Eye Surgery, Gallbladder, Hysterectomy, Orthopedic, Tonsillectomy Respiratory: Yes Pulmonary Embolism Cardiac: Yes (Heart Disease) Hypertension Neurological: 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 oz. 100.376169ks; 31.00 BMI Method: General Appearance: WD/WN, no apparent distress Eyes: Bilateral Eye Normal Inspection HEENT: PERRL/EOMI, normal ENT inspection, pharynx normal Neck: non-tender, full range of motion, supple, normal inspection Respiratory: chest non-tender, lungs clear, normal breath sounds, no respiratory distress, no accessory muscle use Cardiovascular: regular rate, rhythm, no edema, no murmur Gastrointestinal: normal bowel sounds, non tender, soft; No distended, No guarding, No rebound Extremities: normal range of motion, non-tender, normal inspection, no pedal edema, no calf tenderness, normal capillary refill Neurologic/Psychiatric: no motor/sensory deficits, alert, normal mood/affect, oriented x 3 Skin: normal color, warm/dry Lymphatic: no adenopathy Procedures/Interventions Suture Size: 4-0 Progress/Results/Core Measures Suspected Sepsis SIRS Temperature: Pulse: 101 Respiratory Rate: 22 Blood Pressure 139 /77 Mean: 97 Results/Orders My Orders Orders - BRANT MEZA MD Chest 1 View Ap/Pa Only (08/13/21 19:58) Doxycycline Hyclate Tablet (Vibramycin T (08/13/21 20:09) Vital Signs/I&O 08/13/21 08/13/21 19:25 19:25 Temp 37.7 Pulse 101 Resp 22 B/P (MAP) 139/77 (97) Pulse Ox 93 O2 Delivery Nasal Cannula Nasal Cannula O2 Flow Rate 2.00 2.00 Capillary Refill : Blood Pressure Mean: 97 Progress Note : Progress Note 86-year-old female with above history coming in due to worsening cough. ABCs were intact and vital stable on presentation. She is on her baseline 2 L oxygen satting in the mid 90s. Chest x-ray ordered. There is some patchiness on her chest x-ray on my interpretation. It appears similar to prior. Cardiac silhouette normal. We will put her on antibiotics for potential bacterial respiratory infection that is brewing. Vitals have remained stable on her baseline oxygen and she is well-appearing. She was then sent home in stable condition with strict return precautions. Diagnostic Imaging Diagonstic Imaging: Xray (chest) Comments NAME: TADEO MILLS MED REC#: [id number] PT STATUS: REG ER : 1935 PHYSICIAN: BRANT MEZA MD ADMIT DATE: 08/13/21/ER FS Draft Date of Exam:08/13/21 CHEST 1 VIEW AP/PA ONLY INDICATION: 86-year-old female, shortness of breath and cough. TECHNIQUE: Single view chest 8:02 PM. CORRELATION STUDY: 05/09/2021. FINDINGS: Given technique and limited depth of inspiration, heart size, mediastinum and vasculature are overall within normal limits. Scattered patchy somewhat nodular opacities within both lung david favoring multilobe pneumonia, most pronounced at the left lung base. IMPRESSION: Multifocal patchy infiltrate-like opacities favoring multilobe pneumonia. Most pronounced left lung base. Follow-up imaging is recommended until resolution. Dictated on workstation # [id number] Dict: 08/13/212008 Trans: 08/13/21 2013 E [id number] Interpreted by: KOBI MAST DO Electronically signed by: Departure Impression Primary Impression: Bronchitis Disposition: 01 HOME, SELF-CARE Condition: Stable Departure-Patient Inst. Decision time for Depature: 20:11 Referrals: SAMMI PENNY MD (PCP) Primary Care Physician Patient Instructions: Bacterial Upper Respiratory Infection, Adult (DC) Add. Discharge Instructions: You likely have bronchitis and possibly early/developing pneumonia. We will start you on antibiotics for the next week. You received your first dose in the ER and are due for the next dose in the morning tomorrow. The only pharmacy open tomorrow is [facility] so it was sent there. Scripts Doxycycline Hyclate (Doxycycline Hyclate) 100 Mg Tablet 100 MG PO BID for 7 Days, #14 TAB 0 Refills Prov: BRANT MEZA MD 08/13/21 BRANT MEZA MD August 13, 2021 19:46
[2021-08-13] MEDS ORDERED: DOXYCYCLINE 100 MG (VIBRAMYCIN) TABLET PO STA (20:09)
[2021-08-13] MEDS ORDERED: DOXY100T2 PO (20:13)
--- NOTE | 2021-08-13 20:13 | Diagnostic Imaging Report ---
INDICATION: 86-year-old female, shortness of breath and cough. TECHNIQUE: Single view chest 8:02 PM. CORRELATION STUDY: 05/09/2021. FINDINGS: Given technique and limited depth of inspiration, heart size, mediastinum and vasculature are overall within normal limits. Scattered patchy somewhat nodular opacities within both lung david favoring multilobe pneumonia, most pronounced at the left lung base. IMPRESSION: Multifocal patchy infiltrate-like opacities favoring multilobe pneumonia. Most pronounced left lung base. Follow-up imaging is recommended until resolution. Dictated by: Dictated on workstation # [id number]
== END 2021-08-13 20:33 | disposition home or self-care (01) ==
LOC: EDUNIT# 19:06 → ER FS 19:09
DX: J40 Bronchitis, not specified as acute or chronic (principal); Z86.718 Personal history of other venous thrombosis and embolism; Z79.01 Long term (current) use of anticoagulants; Z86.16 Personal history of COVID-19; Z99.81 Dependence on supplemental oxygen
CPT/HCPCS: 71045; 99283

== ENCOUNTER 2021-09-01 16:42 | Emergency (ER) | payer MEDICARE ==
[~2021-09-01] VITALS: Ht 167.7 cm; Wt 85.7 kg
[~2021-09-01 16:42] MED LIST changes: +DOXY100T2 PO
[2021-09-01] MEDS ORDERED: ORPHENADRINE 60 MG/2 ML (NORFLEX) AMP (ED ONLY) IM STA (17:03)
--- NOTE | 2021-09-01 17:43 | Diagnostic Imaging Report ---
PROCEDURE: CT chest without contrast. TECHNIQUE: Multiple contiguous axial images were obtained through the chest without the use of intravenous contrast. Auto Exposure Controls were utilized during the CT exam to meet ALARA standards for radiation dose reduction. INDICATION: Right posterior chest pain with cough. COMPARISON: Exam compared with study dated 05/09/2021. FINDINGS: There is bony demineralization and bridging osteophytes and syndesmophytes throughout the thoracic spine with a generalized exaggeration of the normal thoracic kyphosis, this is unchanged. I see no traumatic disruption to any osteophytes or syndesmophytes and no thoracic spinal fracture or paraspinal hemorrhage is found. There is no identifiable rib fracture deformity. No facet joint dislocation. The aorta is nonaneurysmal. There has been essential resolution of the previous multifocal patchy groundglass nodular pulmonary opacities at the level of the right upper lobe. There is some residual juxta-fissural right upper lobe nodular infiltrate, having improved. There is bronchiectasis and thickening of the ectatic airway centrally. There is no effusion, pneumothorax, or abscess. Underlying bronchitis is suspected. No adenopathy. The visualized upper abdomen shows chronic splenic granulomata. No pneumothorax or pneumomediastinum. IMPRESSION: Improvements in multifocal groundglass nodules. Residual nodular infiltrate in the right upper lobe juxta-fissural has decreased. There is thickening of the airways and peribronchial cuffing, correlate for bronchitis. Underlying osteopenia is presumed with bridging osteophytes and syndesmophytes but no acute spinal or rib bony deformity identified. No effusion, pneumothorax, or pneumomediastinum. Dictated by: Dictated on workstation # [id number]
--- NOTE | 2021-09-01 17:47 | ED Back Pain ---
General Chief Complaint: Back Problems Stated Complaint: LOWER BACK PAIN Nursing Triage Note: This patient arrives via private vehicle with grandson who drover her in and is taken into [facility] room 1 via W/C with complaints of lower right back pain. The patient states that she talked to Dr. Conte nurse this morning regarding the back pain and the nurse instructed her to take 325mg Tylenol as this could be a torn muscle. Source of Information: Patient, Family History of Present Illness Date Seen by Provider: Sep 01, 2021 Time Seen by Provider: 14:50 Initial Comments 86-year-old female presenting with complaints of pain in the back of her right chest with cough and deep breaths. She states this is been worse in the last few days. She had improved pain after taking acetaminophen today. She was concerned that there may be recurrent infection or other reasons that her back and chest were hurting. She did not want to just take the acetaminophen and mask the pain if there was something that she needed antibiotic or other treatment for. She has not had a fever or chills. She has been more depressed due to her passing away in May while she was in the hospital with COVID. Location: T-Spine, Other (Right-sided chest posterior wall) Timing/Duration: 3-4 Days Severity: Severe (Was severe earlier today but now down to a 5 after taking Tylenol, worse with cough) Pain/Injury Location: Chest (Severe right-sided chest) Method of Injury: Other (Coughing hard from recent bronchitis) Modifying Factors: Worse With Movement (And coughing) Associated Symptoms: muscle spasms (Feels like the chest wall and muscles spasming tighten up); No fever, No weakness, No numbness in legs/feet, No tingling in legs/feet, No sensory/motor loss, No lower back pain, No loss of bladder control, No loss of bowel control Allergies and Home Medications Allergies Coded Allergies: Sulfa (Sulfonamide Antibiotics) (Verified Allergy, Unknown, 05/17/13) Uncoded Allergies: KFLEX (Allergy, Severe, RASH, 05/17/13) Patient Home Medication List Home Medication List Reviewed: Yes Amlodipine Besylate (Amlodipine Besylate) 5 Mg Tablet, 5 MG PO DAILY, (Reported) Entered as Reported by: FIDENCIO JASSO on 05/10/21 1401 Calcium Carbonate/Vitamin D3 (Calcium + Vitamin D Tablet) 1 Each Tablet, 1 EACH PO DAILY, (Reported) Entered as Reported by: FIDENCIO JASSO on 05/10/21 140 Cefdinir (Cefdinir) 300 Mg Capsule, 300 MG PO BID Prescribed by: JENNIFER SEAMAN on 05/13/21 113 Dexamethasone (Decadron) 6 Mg Tablet, 6 MG PO DAILY Prescribed by: JENNIFER SEAMAN on 05/13/21 113 Doxycycline Hyclate (Doxycycline Hyclate) 100 Mg Tablet, 100 MG PO BID Prescribed by: BRANT MEZA on 08/13/212012 Fluoxetine HCl (Fluoxetine HCl) 10 Mg Capsule, 10 MG PO DAILY, (Reported) Entered as Reported by: FIDENCIO JASSO on 05/10/21 140 Guaifenesin/Pseudoephedrne HCl (Mucinex D ER 600-60 mg Tablet) 1 Each Tab.er.12h, 1 EACH PO Q12H PRN for CONGESTION, (Reported) Entered as Reported by: FIDENCIO JASSO on 05/10/21 140 Miconazole Nitrate (Lotrimin AF) 90 Gm Powder, 0 GM TOP BID Prescribed by: JENNIFER SEAMAN on 05/13/21 113 Pravastatin Sodium (Pravastatin Sodium) 40 Mg Tablet, 40 MG PO DAILY, (Reported) Entered as Reported by: FIDENCIO JASSO on 05/10/21 140 Prednisone (Prednisone) 20 Mg Tab, 40 MG PO DAILY Prescribed by: ESAU ESPINAL on 09/01/21 180 Tramadol HCl (Tramadol HCl) 50 Mg Tablet, 50 MG PO Q12H PRN for PAIN-MODERATE (5-7) Prescribed by: JENNIFER SEAMAN on 05/13/21 113 Warfarin Sodium (Warfarin Sodium) 2 Mg Tablet, 2 MG PO DAILY Prescribed by: JENNIFER SEAMAN on 05/13/21 113 Review of Systems Constitutional: No chills, No dizziness, No fever EENTM: no symptoms reported Respiratory: cough, phlegm; No stridor, No wheezing Cardiovascular: see HPI, chest pain (Right posterior chest wall pain) Gastrointestinal: no symptoms reported Genitourinary: no symptoms reported Musculoskeletal: see HPI Skin: No change in color, No rash Psychiatric/Neurological: Emotional Problems (Depressed about her dying while she was in the hospital) Past Oclwjuc-Owfjlt-Wkzgot Hx Patient Social History Tobacco Use?: No Smoking Status: Never a Smoker Smokeless Tobacco Frequency: Never a User Use of E-Cig and/or Vaping dev: No Use of E-Cig and/or Vaping Ranjan: Never a User Substance use?: No Alcohol Use?: No Pt feels they are or have been: No Immunizations Up To Date First/Initial COVID19 Vaccinat: unknown date Second COVID19 Vaccination Riley: unknown date Past Medical History Surgery/Hospitalization HX: Hospitalized for 4 days with COVID in May 2021. 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 oz. [id number]; 30.00 BMI Method: General Appearance: No Apparent Distress, WD/WN HEENT: Pharynx Normal Cardiovascular: Regular Rate, Rhythm, Normal Peripheral Pulses Respiratory: Normal Breath Sounds, No Accessory Muscle Use, No Respiratory Distress, Decreased Breath Sounds; No Stridor, No Wheezing; Other (Tender to palpation on the right lower posterior chest wall and ribs. There is no crepitus or step-off. 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 Norm as Tested Skin: Normal Color, Warm/Dry Procedures/Interventions Suture Size: 4-0 Progress/Results/Core Measures Results/Orders My Orders Orders - ESAU ESPINAL MD Ct Chest Wo (09/01/21 17:03) Orphenadrine Inj (Ed Only) (Norflex Inje (09/01/21 17:03) Vital Signs/I&O 09/01/21 09/01/21 16:50 18:13 Temp 37.2 37.1 Pulse 61 72 Resp 18 16 B/P (MAP) 116/40 (65) 123/64 Pulse Ox 94 96 O2 Delivery Room Air Room Air Blood Pressure Mean: 65 Progress Progress Note #1: Progress Note Order CT scan of the chest to evaluate the thoracic spine and her ribs as well as her lungs looking for signs of rib fracture or recurrent pneumonia. Try a dose of Norflex for muscle relaxer to see if that might help with her pain in addition to the Tylenol she has already taken Progress Note #2: Progress Note CT scan shows improvement from May in terms of her multifocal groundglass infiltrates. She still has some increased peribronchial cuffing which could be indicative of some bronchitis. She is already taking Mucinex to help with her cough and congestion. We will have her continue with the acetaminophen. Alternate ice and heat to her back for the chest wall pain. Offer steroid to help with inflammation Diagnostic Imaging Diagonstic Imaging: CT Plain Films/CT/US/NM/MRI: chest Comments [facility], [place] NAME: [facility]O [facility] REC#: [id number] PT STATUS: REG ER : 1935 PHYSICIAN: ESAU ESPINAL MD ADMIT DATE: 09/01/21/ER FS Draft Date of Exam:09/01/21 CT CHEST WO PROCEDURE: CT chest without contrast. TECHNIQUE: Multiple contiguous axial images were obtained through the chest without the use of intravenous contrast. Auto Exposure Controls were utilized during the CT exam to meet ALARA standards for radiation dose reduction. INDICATION: Right posterior chest pain with cough. COMPARISON: Exam compared with study dated 05/09/2021. FINDINGS: There is bony demineralization and bridging osteophytes and syndesmophytes throughout the thoracic spine with a generalized exaggeration of the normal thoracic kyphosis, this is unchanged. I see no traumatic disruption to any osteophytes or syndesmophytes and no thoracic spinal fracture or paraspinal hemorrhage is found. There is no identifiable rib fracture deformity. No facet joint dislocation. The aorta is nonaneurysmal. There has been essential resolution of the previous multifocal patchy groundglass nodular pulmonary opacities at the level of the right upper lobe. There is some residual juxta-fissural right upper lobe nodular infiltrate, having improved. There is bronchiectasis and thickening of the ectatic airway centrally. There is no effusion, pneumothorax, or abscess. Underlying bronchitis is suspected. No adenopathy. The visualized upper abdomen shows chronic splenic granulomata. No pneumothorax or pneumomediastinum. IMPRESSION: Improvements in multifocal groundglass nodules. Residual nodular infiltrate in the right upper lobe juxta-fissural has decreased. There is thickening of the airways and peribronchial cuffing, correlate for bronchitis. Underlying osteopenia is presumed with bridging osteophytes and syndesmophytes but no acute spinal or rib bony deformity identified. No effusion, pneumothorax, or pneumomediastinum. Dictated on workstation # [id number] Dict: 09/01/21 1731 Trans: 09/01/21 1743 [id number] Interpreted by: PHAM GARCIA Electronically signed by: Reviewed: Reviewed by Me Departure Impression Primary Impression: Chest wall muscle strain Qualified Codes: S29.011A - Strain of muscle and tendon of front wall of thorax, initial encounter Additional Impressions: Cough Bronchitis Disposition: HOME, SELF-CARE Condition: Stable Departure-Patient Inst. Decision time for Depature: 17:58 Referrals: SAMMI PENNY MD (PCP) Primary Care Physician Patient Instructions: Muscle Strain ED, Bronchitis, Adult ED, Cough, Adult ED Add. Discharge Instructions: Take steroid to help with cough and bronchitis since the CT scan does not show pneumonia or signs of bacterial infection Continue with Acetaminophen for pain. Alternate ice and heat to chest wall to help with muscle strain from coughing All discharge instructions reviewed with patient and/or family. Voiced understanding. Scripts Prednisone (Prednisone) 20 Mg Tab 40 MG PO DAILY for cough/bronchitis for 5 Days, #10 TAB 0 Refills Prov: ESAU ESPINAL MD 09/01/21 ESAU ESPINAL MD Sep 01, 2021 17:47
[2021-09-01] MEDS ORDERED: PRD20T PO (18:01)
[2021-09-01 18:13] VITALS: BP 123/64
== END 2021-09-01 18:13 | disposition home or self-care (01) ==
LOC: EDUNIT# 16:42 → ER FS 16:43
DX: S29.011A Strain of muscle and tendon of front wall of thorax, initial encounter (principal); J40 Bronchitis, not specified as acute or chronic; Z86.16 Personal history of COVID-19; X58.XXXA Exposure to other specified factors, initial encounter
CPT/HCPCS: 71250

== ENCOUNTER 2021-10-05 10:03 | Outpatient (RCR) | payer MEDICARE ==
[~2021-10-05 10:03] MED LIST changes: +PRD20T PO
[2021-10-05 11:01] LABS: INR 1.2 (0.8-1.4); PROTHROMBIN TIME PATIENT 15.3 SEC (12.2-14.7)
== END 2021-10-30 | disposition home or self-care (01) ==
LOC: LAB FS 10:03
PROVIDERS: ATTEND Pediatrics
DX: I48.0 Paroxysmal atrial fibrillation (principal)
CPT/HCPCS: 36415; 85610

== ENCOUNTER 2021-10-26 09:38 | Emergency (ER) | payer MEDICARE | END 2021-10-26 10:06 | disposition left against medical advice (07) | LOC: EDUNIT# 09:38 → ER FS 09:40 | DX: R05.9 Cough, unspecified (principal) ==

== ENCOUNTER 2021-11-09 10:31 | Outpatient (RCR) | payer MEDICARE ==
[2021-11-09 11:13] LABS: INR 1.3 (0.8-1.4)
== END 2021-11-30 | disposition home or self-care (01) ==
LOC: LAB FS 10:31
PROVIDERS: ATTEND Pediatrics
DX: I48.0 Paroxysmal atrial fibrillation (principal)
CPT/HCPCS: 36415; 85610

== ENCOUNTER 2021-11-16 11:36 | Outpatient (RCR) | payer MEDICARE ==
[2021-11-16 12:24] LABS: INR 1.7 (0.8-1.4); PROTHROMBIN TIME PATIENT 20.8 SEC (12.2-14.7)
== END 2021-11-30 | disposition home or self-care (01) ==
LOC: LAB FS 11:36
PROVIDERS: ATTEND Pediatrics
DX: I48.0 Paroxysmal atrial fibrillation (principal)
CPT/HCPCS: 36415; 85610

== ENCOUNTER → 2021-11-24 | Outpatient (CLI) | payer MEDICARE ==
[2021-11-24 10:29] LABS: BILIRUBIN,URINE 1+ (NEGATIVE); CLARITY,URINE TURBID; COLOR,URINE YELLOW; GLUCOSE, URINE (UA) NEGATIVE (NEGATIVE); KETONES,URINE TRACE (NEGATIVE); LEUKOCYTE ESTERASE ,URINE 3+ (NEGATIVE); NITRITE,URINE POSITIVE (NEGATIVE); PH,URINE 6.5 (5-9); PROTEIN,URINE 2+ (NEGATIVE)
[2021-11-24 10:46] LABS: BACTERIA,URINE TRACE /HPF; RBC,URINE 0-2 /HPF; SQUAMOUS EPITHELIAL CELL,UR RARE /HPF; WBC,URINE TNTC /HPF
== END ==
LOC: LAB FS 10:08
PROVIDERS: ATTEND Pediatrics
DX: R30.0 Dysuria (principal)
CPT/HCPCS: 81000; 87077; 87088; 87186

== ENCOUNTER 2021-12-28 11:46 | Outpatient (RCR) | payer MEDICARE ==
[2021-12-28 12:40] LABS: INR 1.4 (0.8-1.4); PROTHROMBIN TIME PATIENT 17.9 SEC (12.2-14.7)
== END 2021-12-30 ==
LOC: LAB FS 11:46
PROVIDERS: ATTEND Pediatrics
DX: I48.0 Paroxysmal atrial fibrillation (principal)
CPT/HCPCS: 36415; 85610

== ENCOUNTER 2022-01-04 10:32 | Outpatient (RCR) | payer MEDICARE ==
[2022-01-04 11:03] LABS: INR 1.8 (0.8-1.4); PROTHROMBIN TIME PATIENT 21.2 SEC (12.2-14.7)
== END 2022-01-30 | disposition home or self-care (01) ==
LOC: LAB FS 10:32
PROVIDERS: ATTEND Pediatrics
DX: I48.0 Paroxysmal atrial fibrillation (principal)
CPT/HCPCS: 36415; 85610

== ENCOUNTER 2022-02-06 10:59 | Outpatient (RCR) | payer MEDICARE ==
[2022-02-06 11:41] LABS: INR 1.7 (0.8-1.4)
== END 2022-03-01 | disposition home or self-care (01) ==
LOC: LAB FS 10:59
PROVIDERS: ATTEND Pediatrics
DX: I48.0 Paroxysmal atrial fibrillation (principal)
CPT/HCPCS: 36415; 85610

== ENCOUNTER → 2022-02-06 | Outpatient (CLI) | payer MEDICARE ==
--- NOTE | 2022-02-06 16:47 | Diagnostic Imaging Report ---
INDICATION: Cough, wheezing COMPARISON: CT dated 09/01/2021 and radiographs dated 08/13/2021. TECHNIQUE: Four radiographs of the chest dated 02/06/2022. FINDINGS: The cardiac silhouette is within normal limits in size. No significant pulmonary vascular congestion. Low lung volumes. Linear interstitial opacities are identified within the left midlung, stable since recent CT examination. Calcified granuloma within the left lung base and overlying the left lung base within the spleen is again noted. The right lung appears clear. No significant pleural effusion. No pneumothorax. Scattered osseous degenerative changes without acute osseous abnormality. IMPRESSION: Low lung volumes with persistent minimal scarring and/or atelectasis within the left midlung. Evidence of chronic granulomatous disease without evidence of superimposed acute cardiopulmonary abnormality. Dictated by: Dictated on workstation # [id number]
== END ==
LOC: RAD FS 10:56
PROVIDERS: ATTEND Pediatrics
DX: J98.4 Other disorders of lung (principal)
CPT/HCPCS: 71046

== ENCOUNTER 2022-03-18 14:52 | Emergency (ER) | payer MEDICARE ==
[~2022-03-18] VITALS: Ht 170 cm; Wt 88.0 kg
--- NOTE | 2022-03-18 15:23 | ED General ---
General Stated Complaint: COUGHING UP BLOOD,WEAK Source of Information: Patient Exam Limitations: Intoxication History of Present Illness Date Seen by Provider: Mar 18, 2022 Time Seen by Provider: 15:20 Initial Comments Patient is an 87-year-old female with history of chronic atrial fibrillation currently on Coumadin presents with cough for the past 2 months. Patient reports productive cough with clear sputum which became blood-tinged last evening. She denies shortness of breath, fever chills, sweats. She denies chest or back pain. No leg pain or swelling. She denies increased shortness of breath or chest pain. She wears 2 L of oxygen at baseline but arrived to the emergency department and by private vehicle without oxygen on. Patient has not had an INR checked in the past several weeks. She denies other symptoms or complaints. Timing/Duration: 1/2 Hour, 12-24 Hours Severity: Mild Modifying Factors: improves with Other Associated Systoms: Other Allergies and Home Medications Allergies Coded Allergies: Sulfa (Sulfonamide Antibiotics) (Verified Allergy, Unknown, 05/17/13) Uncoded Allergies: KFLEX (Allergy, Severe, RASH, 05/17/13) Patient Home Medication List Home Medication List Reviewed: Yes Amlodipine Besylate (Amlodipine Besylate) 5 Mg Tablet, 5 MG PO DAILY, (Reported) Entered as Reported by: FIDENCIO JASSO on 05/10/211400 Calcium Carbonate/Vitamin D3 (Calcium + Vitamin D Tablet) 1 Each Tablet, 1 EACH PO DAILY, (Reported) Entered as Reported by: FIDENCIO JASSO on 05/10/21 140 Cefdinir (Cefdinir) 300 Mg Capsule, 300 MG PO BID Prescribed by: JENNIFER SEAMAN on 05/13/21 113 Dexamethasone (Decadron) 6 Mg Tablet, 6 MG PO DAILY Prescribed by: JENNIFER SEAMAN on 05/13/21 113 Doxycycline Hyclate (Doxycycline Hyclate) 100 Mg Tablet, 100 MG PO BID Prescribed by: BRANT MEZA on 08/13/212012 Fluoxetine HCl (Fluoxetine HCl) 10 Mg Capsule, 10 MG PO DAILY, (Reported) Entered as Reported by: FIDENCIO JASSO on 05/10/21 140 Guaifenesin/Pseudoephedrne HCl (Mucinex D ER 600-60 mg Tablet) 1 Each Tab.er.12h, 1 EACH PO Q12H PRN for CONGESTION, (Reported) Entered as Reported by: FIDENCIO JASSO on 05/10/21 1405 Miconazole Nitrate (Lotrimin AF) 90 Gm Powder, 0 GM TOP BID Prescribed by: JENNIFER SEAMAN on 05/13/21 1130 Pravastatin Sodium (Pravastatin Sodium) 40 Mg Tablet, 40 MG PO DAILY, (Reported) Entered as Reported by: FIDENCIO JASSO on 05/10/21 1401 Prednisone (Prednisone) 20 Mg Tab, 40 MG PO DAILY Prescribed by: ESAU ESPINAL on 09/01/21 1801 Tramadol HCl (Tramadol HCl) 50 Mg Tablet, 50 MG PO Q12H PRN for PAIN-MODERATE (5-7) Prescribed by: JENNIFER SEAMAN on 05/13/21 1131 Warfarin Sodium (Warfarin Sodium) 2 Mg Tablet, 2 MG PO DAILY Prescribed by: JENNIFER SEAMAN on 05/13/21 1130 Review of Systems Review of Systems Constitutional: see HPI EENTM: see HPI Respiratory: see HPI Cardiovascular: see HPI Gastrointestinal: see HPI : No Musculoskeletal: see HPI Skin: see HPI Psychiatric/Neurological: See HPI Hematologic/Lymphatic: See HPI Immunological/Allergic: see HPI All Other Systems Reviewed Negative Unless Noted: No Past Bczakji-Sruohv-Muicqi Hx Patient Social History Tobacco Use?: No Immunizations Up To Date First/Initial COVID19 Vaccinat: unknown date Second COVID19 Vaccination Riley: unknown date Past Medical History Surgery/Hospitalization HX: Hospitalized for 4 days with COVID in May 2021. 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 oz. 100.895867va; 30.00 BMI Method: General Appearance: No Apparent Distress, WD/WN, Anxious Eyes: Bilateral Eye Normal Inspection, Bilateral Eye PERRL, Bilateral Eye EOMI HEENT: PERRL/EOMI, Normal ENT Inspection, Pharynx Normal Neck: Full Range of Motion, Normal Inspection, Non Tender, Supple Respiratory: Chest Non Tender, Lungs Clear Cardiovascular: Regular Rate, Rhythm Gastrointestinal: Non Tender, Soft Back: No CVA Tenderness Neurologic/Psychiatric: Alert, Oriented x3, Normal Mood/Affect Skin: Normal Color Focused Exam Sepsis Stage: Ruled Out Lactate Level 03/18/22 15:35: Lactic Acid Level 1.66 Lactic Acid Level Laboratory Tests Test 03/18/22 15:35 Lactic Acid Level 1.66 MMOL/L (0.50-2.00) Procedures/Interventions Suture Size: 4-0 Progress/Results/Core Measures Suspected Sepsis SIRS Temperature: Pulse: Respiratory Rate: Laboratory Tests 03/18/22 15:15: White Blood Count 37.4*H Blood Pressure / Mean: 03/18/22 15:35: Lactic Acid Level 1.66 Laboratory Tests 03/18/22 15:15: Creatinine 0.80, INR Comment 2.6H, Platelet Count 200, Total Bilirubin 1.1H Results/Orders Lab Results Laboratory Tests Test 03/18/22 15:15 03/18/22 15:35 Range/Units White Blood Count 37.4 *H 4.3-11.0 10^3/uL Red Blood Count 4.30 3.80-5.11 10^6/uL Hemoglobin 12.5 11.5-16.0 g/dL Hematocrit 37 35-52 % Mean Corpuscular Volume 87 80-99 fL Mean Corpuscular Hemoglobin 29 25-34 pg Mean Corpuscular Hemoglobin Concent 34 32-36 g/dL Red Cell Distribution Width 13.8 10.0-14.5 % Platelet Count 200 130-400 10^3/uL Mean Platelet Volume 10.3 9.0-12.2 fL Immature Granulocyte % (Auto) 2 % Neutrophils (%) (Auto) 94 H 42-75 % Lymphocytes (%) (Auto) 1 L 12-44 % Monocytes (%) (Auto) 3 0-12 % Eosinophils (%) (Auto) 0 0-10 % Basophils (%) (Auto) 0 0-10 % Neutrophils # (Auto) 35.0 H 1.8-7.8 10^3/uL Lymphocytes # (Auto) 0.5 L 1.0-4.0 10^3/uL Monocytes # (Auto) 1.1 H 0.0-1.0 10^3/uL Eosinophils # (Auto) 0.0 0.0-0.3 10^3/uL Basophils # (Auto) 0.1 0.0-0.1 10^3/uL Immature Granulocyte # (Auto) 0.8 H 0.0-0.1 10^3/uL Neutrophils % (Manual) 97 % Lymphocytes % (Manual) 1 % Monocytes % (Manual) 2 % Toxic Granulation 4+ Polychromasia SLIGHT Prothrombin Time 28.2 H 12.2-14.7 SEC INR Comment 2.6 H 0.8-1.4 Sodium Level 136 135-145 MMOL/L Potassium Level 3.6 3.6-5.0 MMOL/L Chloride Level 100 98-107 MMOL/L Carbon Dioxide Level 27 21-32 MMOL/L Anion Gap 9 5-14 MMOL/L Blood Urea Nitrogen 22 H 7-18 MG/DL Creatinine 0.80 0.60-1.30 MG/DL Estimat Glomerular Filtration Rate 72 BUN/Creatinine Ratio 28 Glucose Level 124 H 70-105 MG/DL Calcium Level 9.2 8.5-10.1 MG/DL Corrected Calcium 9.8 8.5-10.1 MG/DL Total Bilirubin 1.1 H 0.1-1.0 MG/DL Aspartate Amino Transf (AST/SGOT) 15 5-34 U/L Alanine Aminotransferase (ALT/SGPT) 12 0-55 U/L Alkaline Phosphatase 73 40-136 U/L Pro-B-Type Natriuretic Peptide 8978.0 H <450.0 PG/ML Total Protein 7.1 6.4-8.2 GM/DL Albumin 3.3 3.2-4.5 GM/DL Lactic Acid Level 1.66 0.50-2.00 MMOL/L My Orders Orders - GIOVANY COLUNGA DO Chest 1 View Ap/Pa Only (03/18/22 15:10) Cbc With Automated Diff (03/18/22 15:10) Comprehensive Metabolic Panel (03/18/22 15:10) Probnp Fs (03/18/22 15:10) Protime With Inr (03/18/22 15:12) Blood Culture (03/18/22 15:26) Lactic Acid Analyzer (03/18/22 15:26) Manual Differential (03/18/22 15:15) Blood Culture (03/18/22 15:35) Furosemide Injection (Lasix Injection) (03/18/22 16:00) Piperacillin Sodium/Tazobactam (Zosyn Vi (03/18/22 16:15) Vancomycin Injection (Vancomycin Injecti (03/18/22 16:15) Ekg Tracing (03/18/22 16:03) Troponin I Fs (03/18/22 16:03) Vital Signs/I&O 03/18/22 15:26 Temp 36.8 Pulse 107 Resp 20 B/P (MAP) 140/57 (84) Pulse Ox 100 O2 Delivery Nasal Cannula O2 Flow Rate 2.00 Capillary Refill : Departure Communication (Admissions) Chest x-ray: Right pleural effusion with bilateral infiltrates per radiology report. Patient with blood-tinged sputum likely related to congestive heart failure and/or pneumonia with 34,000 white count. Vital signs are stable on 2 L of oxygen. IV Lasix, and broad-spectrum initiated. Patient requires hospital admission to [facility] where her PCP practices. Impression Primary Impression: Hemoptysis Additional Impressions: Congestive heart failure Pneumonia Disposition: [facility] Condition: Stable Departure-Patient Inst. Referrals: SAMMI PENNY MD (PCP/Family) Primary Care Physician GIOVANY COLNUGA DO Mar 18, 2022 15:23
[2022-03-18 15:24] LABS: BASOPHILS # (AUTO) 0.1 10^3/uL (0.0-0.1); BASOPHILS % (AUTO) 0 % (0-10); EOSINOPHILS % (AUTO) 0 % (0-10); HEMATOCRIT 37 % (35-52); HEMOGLOBIN 12.5 g/dL (11.5-16.0); LYMPHOCYTES # (AUTO) 0.5 10^3/uL (1.0-4.0); LYMPHOCYTES % (AUTO) 1 % (12-44); MEAN CORPUSCULAR HEMOGLOBIN 29 pg (25-34); MEAN CORPUSCULAR HGB CONC 34 g/dL (32-36); MEAN CORPUSCULAR VOLUME 87 fL (80-99); MEAN PLATELET VOLUME 10.3 fL (9.0-12.2); MONOCYTES # (AUTO) 1.1 10^3/uL (0.0-1.0); MONOCYTES % (AUTO) 3 % (0-12); NEUTROPHILS % (AUTO) 94 % (42-75); PLATELET COUNT 200 10^3/uL (130-400)
[2022-03-18 15:26] LABS: WHITE BLOOD COUNT 37.4 10^3/uL (4.3-11.0)
--- NOTE | 2022-03-18 15:30 | Diagnostic Imaging Report ---
INDICATION: Cough and dyspnea. COMPARISON: 08/13/2021. DISCUSSION: Single portable upright view of the chest was obtained. Low lung volumes. Small right effusion is noted. Opacity within the right lung base could be seen with atelectasis, pneumonia or fluid within the fissure. Normal heart size. No osseous abnormality. No pneumothorax. IMPRESSION: Small right pleural effusion with associated infiltrates. Dictated by: Dictated on workstation # [id number]
[2022-03-18 15:39] LABS: INR 2.6 (0.8-1.4); PROTHROMBIN TIME PATIENT 28.2 SEC (12.2-14.7)
[2022-03-18 15:44] LABS: BILIRUBIN,TOTAL 1.1 MG/DL (0.1-1.0); CALCIUM 9.2 MG/DL (8.5-10.1); CREATININE SERUM 0.8 MG/DL (0.60-1.30); POTASSIUM 3.6 MMOL/L (3.6-5.0)
[2022-03-18 15:45] LABS: ALBUMIN 3.3 GM/DL (3.2-4.5); TOTAL PROTEIN 7.1 GM/DL (6.4-8.2)
[2022-03-18 15:57] LABS: LYMPHOCYTES % (MANUAL) 1 %; MONOCYTES % (MANUAL) 2 %; NEUTROPHILS % (MANUAL) 97 %; POLYCHROMASIA SLIGHT; TOXIC GRANULATION/VACUOLAZATIO 4+
[2022-03-18] MEDS ORDERED: FUROSEMIDE 40 MG/4 ML INJ (LASIX) IVP ONE (16:00)
[2022-03-18 16:10] VITALS: BP 124/54
[2022-03-18] MEDS ORDERED: VANCOMYCIN INJECTION 1,000 MG in NS (IVPB) 250 ML IV ONE (16:15)
[2022-03-18] MEDS ORDERED: PIPERACILLIN SODIUM/TAZOBACTAM 4.5 GM in NS (IVPB) 100 ML IV ONE (16:15)
[2022-03-18] MEDS ORDERED: NS IV 1000 ML 500 ML IV SCH (16:30)
== END 2022-03-18 17:50 | disposition short-term general hospital (02) ==
LOC: EDUNIT# 14:52 → ER FS 14:54
DX: I11.0 Hypertensive heart disease with heart failure (principal); I50.9 Heart failure, unspecified; J18.9 Pneumonia, unspecified organism; R04.2 Hemoptysis; I48.20 Chronic atrial fibrillation, unspecified; Z86.16 Personal history of COVID-19; Z79.01 Long term (current) use of anticoagulants
CPT/HCPCS: 36415; 71045; 80053; 83605; 83880; 84484; 85007; 85027; 85610; 87040; 87077; 87181; 87184; 93005

== ENCOUNTER → 2022-04-24 | Outpatient (CLI) | payer MEDICARE ==
[2022-04-24 14:19] LABS: INR 1.7 (0.8-1.4); PROTHROMBIN TIME PATIENT 20.5 SEC (12.2-14.7)
== END ==
LOC: LAB FS 13:32
PROVIDERS: ATTEND Pediatrics
DX: I48.0 Paroxysmal atrial fibrillation (principal)
CPT/HCPCS: 36415; 85610

== ENCOUNTER 2022-05-01 12:54 | Outpatient (RCR) | payer MEDICARE ==
[2022-05-01 14:01] LABS: INR 3.1 (0.8-1.4); PROTHROMBIN TIME PATIENT 32.4 SEC (12.2-14.7)
== END 2022-05-02 | disposition home or self-care (01) ==
LOC: LAB FS 12:54
PROVIDERS: ATTEND Pediatrics
DX: I48.0 Paroxysmal atrial fibrillation (principal)
CPT/HCPCS: 36415; 85610

== ENCOUNTER 2022-05-29 12:08 | Outpatient (RCR) | payer MEDICARE ==
[2022-05-15 11:09] LABS: PROTHROMBIN TIME PATIENT 33.7 SEC (12.2-14.7)
[2022-05-15 11:10] LABS: INR 3.3 (0.8-1.4)
[2022-05-29 13:30] LABS: INR 1.8 (0.8-1.4); PROTHROMBIN TIME PATIENT 21.7 SEC (12.2-14.7)
== END 2022-05-30 | disposition home or self-care (01) ==
LOC: LAB FS 12:08
PROVIDERS: ATTEND Pediatrics
DX: I48.0 Paroxysmal atrial fibrillation (principal)
CPT/HCPCS: 36415; 85610

== ENCOUNTER → 2022-06-20 | Outpatient (CLI) | payer MEDICARE ==
[2022-06-20 10:03] LABS: BILIRUBIN,URINE 1+ (NEGATIVE); CLARITY,URINE TURBID; COLOR,URINE YELLOW; GLUCOSE, URINE (UA) NEGATIVE (NEGATIVE); KETONES,URINE NEGATIVE (NEGATIVE); LEUKOCYTE ESTERASE ,URINE 2+ (NEGATIVE); NITRITE,URINE NEGATIVE (NEGATIVE); PROTEIN,URINE 1+ (NEGATIVE)
[2022-06-20 10:22] LABS: BACTERIA,URINE TRACE /HPF; WBC,URINE TNTC /HPF
== END ==
LOC: LAB FS 09:37
PROVIDERS: ATTEND Pediatrics
DX: I11.0 Hypertensive heart disease with heart failure (principal); I50.21 Acute systolic (congestive) heart failure; R30.0 Dysuria
CPT/HCPCS: 81000; 87077; 87088; 87186

== ENCOUNTER 2022-07-24 17:17 | Emergency (ER) | payer MEDICARE ==
[~2022-07-24] VITALS: Ht 167.7 cm; Wt 113.4 kg
--- NOTE | 2022-07-24 17:42 | ED General ---
General Chief Complaint: General Problems/Pain Stated Complaint: WEAKNESS Source of Information: Patient, EMS, Old Records History of Present Illness Date Seen by Provider: Jul 24, 2022 Time Seen by Provider: 17:18 Initial Comments 87-year-old female presenting with complaints of generalized weakness since last week. She states that she has been sleeping a lot and not eating and drinking normally. She also has not taken all of her regular medications due to sleeping so much. She reports just feeling weak and having trouble controlling her bladder. She does wear adult diapers. She has some pain to her bottom from where she has been sitting. She has had a loose cough productive of clear to white sputum. She does use home oxygen at 2-1/2 to 3 L. Timing/Duration: 1 Week (At least 1 week) Severity: Moderate Associated Systoms: No Chest Pain; Cough; No Diaphoresis, No Fever/Chills, No Headaches; Loss of Appetite, Malaise; No Nausea/Vomiting, No Seizure; Shortness of Air; No Syncope; Weakness Allergies and Home Medications Allergies Coded Allergies: Sulfa (Sulfonamide Antibiotics) (Verified Allergy, Unknown, 05/17/13) Uncoded Allergies: KFLEX (Allergy, Severe, RASH, 05/17/13) Patient Home Medication List Home Medication List Reviewed: Yes Amlodipine Besylate (Amlodipine Besylate) 5 Mg Tablet, 5 MG PO DAILY, (Reported) Entered as Reported by: FIDENCIO JASSO on 05/10/21 140 Calcium Carbonate/Vitamin D3 (Calcium + Vitamin D Tablet) 1 Each Tablet, 1 EACH PO DAILY, (Reported) Entered as Reported by: FIDENCIO JASSO on 05/10/21 140 Cefdinir (Cefdinir) 300 Mg Capsule, 300 MG PO BID Prescribed by: JENNIFER SEAMAN on 05/13/21 113 Dexamethasone (Decadron) 6 Mg Tablet, 6 MG PO DAILY Prescribed by: JENNIFER SEAMAN on 05/13/21 113 Doxycycline Hyclate (Doxycycline Hyclate) 100 Mg Tablet, 100 MG PO BID Prescribed by: BRANT MEZA on 08/13/212012 Fluoxetine HCl (Fluoxetine HCl) 10 Mg Capsule, 10 MG PO DAILY, (Reported) Entered as Reported by: FIDENCIO JASSO on 05/10/21 140 Guaifenesin/Pseudoephedrne HCl (Mucinex D ER 600-60 mg Tablet) 1 Each Tab.er.12h, 1 EACH PO Q12H PRN for CONGESTION, (Reported) Entered as Reported by: FIDENCIO JASSO on 05/10/21 1405 Miconazole Nitrate (Lotrimin AF) 90 Gm Powder, 0 GM TOP BID Prescribed by: JENNIFER SEAMAN on 05/13/21 1130 Pravastatin Sodium (Pravastatin Sodium) 40 Mg Tablet, 40 MG PO DAILY, (Reported) Entered as Reported by: FIDENCIO JASSO on 05/10/21 1401 Prednisone (Prednisone) 20 Mg Tab, 40 MG PO DAILY Prescribed by: ESAU ESPINAL on 09/01/21 1801 Tramadol HCl (Tramadol HCl) 50 Mg Tablet, 50 MG PO Q12H PRN for PAIN-MODERATE (5-7) Prescribed by: JENNIFER SEAMAN on 05/13/21 1131 Warfarin Sodium (Warfarin Sodium) 2 Mg Tablet, 2 MG PO DAILY Prescribed by: JENNIFER SEAMAN on 05/13/21 1130 Review of Systems Review of Systems Constitutional: No chills, No fever EENTM: no symptoms reported Respiratory: see HPI Cardiovascular: No chest pain Gastrointestinal: No abdominal pain, No nausea, No vomiting Genitourinary: incontinence Musculoskeletal: no symptoms reported Skin: other (soreness with stage 1 decub ulcers on buttocks, right buttock more than left) Psychiatric/Neurological: See HPI Past Nayndqk-Mziuyk-Blnkzs Hx Immunizations Up To Date First/Initial COVID19 Vaccinat: unknown date Second COVID19 Vaccination Riley: unknown date Past Medical History Surgery/Hospitalization HX: Hospitalized for 4 days with COVID in May 2021. 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 oz. 100.429647ie; 30.00 BMI Method: General Appearance: No Apparent Distress, Chronically ill HEENT: No Moist Mucous Membranes (slightly dry mucous membranes) Neck: Full Range of Motion, Normal Inspection, Non Tender, Supple Respiratory: Chest Non Tender, No Accessory Muscle Use, No Respiratory Distress, Decreased Breath Sounds Cardiovascular: Regular Rate, Rhythm, Normal Peripheral Pulses Gastrointestinal: Normal Bowel Sounds, No Pulsatile Mass, Non Tender, Soft Extremity: Normal Capillary Refill, Pedal Edema (bilateral 1+ ) Neurologic/Psychiatric: Alert, Oriented x3, certified massage therapist II-XII Norm as Tested Skin: Warm/Dry, Erythema (stage 1 decub ulcers to right buttock and perineum) Focused Exam Lactate Level 07/24/22 17:39: Lactic Acid Level 1.27 Lactic Acid Level Laboratory Tests Test 07/24/22 17:39 Lactic Acid Level 1.27 MMOL/L (0.50-2.00) Procedures/Interventions Suture Size: 4-0 Progress/Results/Core Measures Suspected Sepsis SIRS Temperature: Pulse: Respiratory Rate: Laboratory Tests 07/24/22 17:39: White Blood Count 18.6H Blood Pressure / Mean: 07/24/22 17:39: Lactic Acid Level 1.27 Laboratory Tests 07/24/22 17:39: Creatinine 0.65, Platelet Count 277, Total Bilirubin 0.9 Results/Orders Lab Results Laboratory Tests Test 07/24/22 17:39 07/24/22 17:42 Range/Units White Blood Count 18.6 H 4.3-11.0 10^3/uL Red Blood Count 4.21 3.80-5.11 10^6/uL Hemoglobin 12.2 11.5-16.0 g/dL Hematocrit 38 35-52 % Mean Corpuscular Volume 90 80-99 fL Mean Corpuscular Hemoglobin 29 25-34 pg Mean Corpuscular Hemoglobin Concent 32 32-36 g/dL Red Cell Distribution Width 13.7 10.0-14.5 % Platelet Count 277 130-400 10^3/uL Mean Platelet Volume 10.5 9.0-12.2 fL Immature Granulocyte % (Auto) 1 % Neutrophils (%) (Auto) 86 H 42-75 % Lymphocytes (%) (Auto) 4 L 12-44 % Monocytes (%) (Auto) 8 0-12 % Eosinophils (%) (Auto) 0 0-10 % Basophils (%) (Auto) 0 0-10 % Neutrophils # (Auto) 16.0 H 1.8-7.8 10^3/uL Lymphocytes # (Auto) 0.8 L 1.0-4.0 10^3/uL Monocytes # (Auto) 1.5 H 0.0-1.0 10^3/uL Eosinophils # (Auto) 0.0 0.0-0.3 10^3/uL Basophils # (Auto) 0.0 0.0-0.1 10^3/uL Immature Granulocyte # (Auto) 0.2 H 0.0-0.1 10^3/uL Neutrophils % (Manual) 86 % Lymphocytes % (Manual) 6 % Monocytes % (Manual) 5 % Eosinophils % (Manual) 0 % Basophils % (Manual) 0 % Band Neutrophils 3 % Toxic Granulation 2+ Sodium Level 137 135-145 MMOL/L Potassium Level 4.0 3.6-5.0 MMOL/L Chloride Level 98 98-107 MMOL/L Carbon Dioxide Level 29 21-32 MMOL/L Anion Gap 10 5-14 MMOL/L Blood Urea Nitrogen 13 7-18 MG/DL Creatinine 0.65 0.60-1.30 MG/DL Estimat Glomerular Filtration Rate 86 BUN/Creatinine Ratio 20 Glucose Level 97 70-105 MG/DL Lactic Acid Level 1.27 0.50-2.00 MMOL/L Calcium Level 9.4 8.5-10.1 MG/DL Corrected Calcium 10.4 H 8.5-10.1 MG/DL Total Bilirubin 0.9 0.1-1.0 MG/DL Aspartate Amino Transf (AST/SGOT) 11 5-34 U/L Alanine Aminotransferase (ALT/SGPT) 6 0-55 U/L Alkaline Phosphatase 83 40-136 U/L C-Reactive Protein 40.87 H <0.50 MG/DL Total Protein 7.1 6.4-8.2 GM/DL Albumin 2.8 L 3.2-4.5 GM/DL Urine Color YELLOW Urine Clarity TURBID Urine pH 6.0 5-9 Urine Specific [place] >=1.030 1.016-1.022 Urine Protein NEGATIVE NEGATIVE Urine Glucose (UA) NEGATIVE NEGATIVE Urine Ketones NEGATIVE NEGATIVE Urine Nitrite POSITIVE H NEGATIVE Urine Bilirubin NEGATIVE NEGATIVE Urine Urobilinogen 2.0 < = 1.0 MG/DL Urine Leukocyte Esterase 3+ H NEGATIVE Urine RBC (Auto) NEGATIVE NEGATIVE Urine RBC NONE /HPF Urine WBC TNTC H /HPF Urine Squamous Epithelial Cells 0-2 /HPF Urine Crystals NONE /LPF Urine Bacteria MODERATE H /HPF Urine Casts NONE /LPF Urine Mucus NEGATIVE /LPF Urine Culture Indicated YES My Orders Orders - ESAU ESPINAL MD Cbc With Automated Diff (07/24/22 17:35) Comprehensive Metabolic Panel (07/24/22 17:35) Blood Culture (07/24/22 17:35) Ua Culture If Indicated (07/24/22 17:35) Chest 1 View Ap/Pa Only (07/24/22 17:35) Ed Iv/Invasive Line Start (07/24/22 17:35) Crp Fs (07/24/22 17:35) Lactic Acid Analyzer (07/24/22 17:35) Lopez Cath (07/24/22 17:35) O2 (07/24/22 17:35) Manual Differential (07/24/22 17:39) Urine Culture (07/24/22 17:42) Ceftriaxone Iv/Im (Rocephin Iv/Im) (07/24/22 18:34) Vital Signs/I&O 07/24/22 07/24/22 07/24/22 17:17 17:17 19:59 Temp 36.9 Pulse 89 80 Resp 16 16 B/P (MAP) 123/54 (77) 117/58 Pulse Ox 90 91 98 O2 Delivery Nasal Cannula Nasal Cannula Nasal Cannula O2 Flow Rate 3.00 2.50 2.00 Capillary Refill : Progress Note #1: Progress Note Potential diagnosis of urinary tract infection, pneumonia, kidney failure, liver failure, sepsis, dehydration. Will have the nurses clean the patient and get her into some dry gown and clothes. Obtain lopez catheter to send urine specimen and be able to obtain accurate I&Os. Lab for complete blood count, comprehensive metabolic profile, CRP, blood cultures, lactic acid, urinalysis. 1 view chest x-ray to look for signs of pneumonia or fluid overload. Continue on home oxygen at 2-1/2 to 3 L to keep O2 sats above 90%. Progress Note #2: Progress Note Complete blood count shows elevated white blood cell count 18.6 thousand with a left shift of 86% neutrophils. Hemoglobin was not showing anemia with a value of 12.2. Her lactic acid was negative at 1.27. The chest x-ray had shown some chronic changes and possible acute infiltrate along the right fissure. Her urinalysis had positive nitrites with 3+ leukocyte esterase and too numerous to count white blood cells and moderate bacteria. She was little more alert and interactive after IV fluid hydration. Will start ceftriaxone 1 g IV for her urine and pneumonia. Will check with her PCP, Dr. Penny, about treating her UTI and pneumonia. [address] Penny over the phone about the patient and her presentation. He was notified of her having findings for urinary tract infection as well as elevation of the white blood cell count and pneumonia on the chest x-ray. She was did not have sepsis as her lactic acid was not eleva chepe. She was feeling a little better after fluids here and will administer Rocephin 1 g IV for urine infection and pneumonia. He was agreeable with the Rocephin and stated that some of her complaints tonight were chronic conditions for her. Depending on how she feels if she was agreeable with going home she could take Levaquin at home to treat the infections and if they did not feel like she could go home [facility] will accept her [facility]. If she goes home he would have the clinic call tomorrow about helping set up home health. 184 after discussing treatment plan with patient and her caregiver, Joao, they were agreeable to antibiotics but felt that she was too weak to go home and wanted to be admitted to [place] for IV antibiotics and help her get back on track with chronic medicines. Updated Dr. Penny and he was agreeable to admit provided they have a bed and capability at [facility]. 185 When the nurse called [facility] they advised that they did have a room available and could take the patient for a floor bed. Will arrange transport with EMS. Diagnostic Imaging Diagonstic Imaging: Xray Plain Films/CT/US/NM/MRI: chest Comments NAME: TADEO MILLS MED REC#: [id number] PT STATUS: REG ER : 1935 PHYSICIAN: ESAU ESPINAL MD ADMIT DATE: 07/24/22/ER FS Draft Date of Exam:07/24/22 CHEST 1 VIEW AP/PA ONLY INDICATION: General weakness and shortness of breath. COMPARISON: 03/18/2022. FINDINGS: There are chronic pulmonary interstitial changes. There also are superimposed airspace opacities which appear to be just above the minor fissure within the right lung that may reflect pneumonia. There is a probable small right effusion. There is no pneumothorax. Heart size appears appropriate. Pulmonary vascularity appears normal. IMPRESSION: Chronic pulmonary interstitial changes with airspace opacities above the minor fissure within the right lung and a probable right-sided effusion. Features are suspect for a pneumonia. Dictated on workstation # [id number] Dict: 07/24/221812 Trans: 07/24/221815 AS6 [id number] Interpreted by: RICHA RICHARDSON MD Electronically signed by: Reviewed: Reviewed by Me Departure Impression Primary Impression: Acute cystitis without hematuria Additional Impressions: Pneumonia involving right lung Qualified Codes: J18.9 - Pneumonia, unspecified organism General weakness Decubitus ulcer of buttock, stage 1 Qualified Codes: L89.311 - Pressure ulcer of right buttock, stage 1 Disposition: T-[facility] Condition: Stable Transfer Transfer Reason: Patient preference Time Spoke to Accepting Phy: 18:45 Transfer Progress Notes [address] Penny over the phone about the patient and her presentation. He was notified of her having findings for urinary tract infection as well as elevation of the white blood cell count and pneumonia on the chest x-ray. She was did not have sepsis as her lactic acid was not eleva chepe. She was feeling a little better after fluids here and will administer Rocephin 1 g IV for urine infection and pneumonia. He was agreeable with the Rocephin and stated that some of her complaints tonight were chronic conditions for her. Depending on how she feels if she was agreeable with going home she could take Levaquin at home to treat the infections and if they did not feel like she could go home [facility] will accept her for admission to [facility]. If she goes home he would have the clinic call tomorrow about helping set up home health. 1845 after discussing treatment plan with patient and her caregiver, Joao, they were agreeable to antibiotics but felt that she was too weak to go home and wanted to be admitted to [place] for IV antibiotics and help her get back on track with chronic medicines. Updated Dr. Penny and he was agreeable to admit provided they have a bed and capability at [facility]. Transfer Facility: [facility] Method of Transfer: EMS Departure-Patient Inst. Referrals: SAMMI PENNY MD (PCP/Family) Primary Care Physician ESAU ESPINAL MD Jul 24, 2022 17:42
[2022-07-24 17:54] LABS: BASOPHILS % (AUTO) 0 % (0-10); EOSINOPHILS % (AUTO) 0 % (0-10); HEMATOCRIT 38 % (35-52); HEMOGLOBIN 12.2 g/dL (11.5-16.0); LYMPHOCYTES # (AUTO) 0.8 10^3/uL (1.0-4.0); LYMPHOCYTES % (AUTO) 4 % (12-44); MEAN CORPUSCULAR HEMOGLOBIN 29 pg (25-34); MEAN CORPUSCULAR HGB CONC 32 g/dL (32-36); MEAN CORPUSCULAR VOLUME 90 fL (80-99); MEAN PLATELET VOLUME 10.5 fL (9.0-12.2); MONOCYTES # (AUTO) 1.5 10^3/uL (0.0-1.0); MONOCYTES % (AUTO) 8 % (0-12); NEUTROPHILS % (AUTO) 86 % (42-75); PLATELET COUNT 277 10^3/uL (130-400); WHITE BLOOD COUNT 18.6 10^3/uL (4.3-11.0)
[2022-07-24 18:00] LABS: BILIRUBIN,URINE NEGATIVE (NEGATIVE); CLARITY,URINE TURBID; COLOR,URINE YELLOW; GLUCOSE, URINE (UA) NEGATIVE (NEGATIVE); KETONES,URINE NEGATIVE (NEGATIVE); LEUKOCYTE ESTERASE ,URINE 3+ (NEGATIVE); NITRITE,URINE POSITIVE (NEGATIVE); PROTEIN,URINE NEGATIVE (NEGATIVE)
[2022-07-24 18:12] LABS: BACTERIA,URINE MODERATE /HPF; SQUAMOUS EPITHELIAL CELL,UR 0-2 /HPF; WBC,URINE TNTC /HPF
--- NOTE | 2022-07-24 18:16 | Diagnostic Imaging Report ---
INDICATION: General weakness and shortness of breath. COMPARISON: 03/18/2022. FINDINGS: There are chronic pulmonary interstitial changes. There also are superimposed airspace opacities which appear to be just above the minor fissure within the right lung that may reflect pneumonia. There is a probable small right effusion. There is no pneumothorax. Heart size appears appropriate. Pulmonary vascularity appears normal. IMPRESSION: Chronic pulmonary interstitial changes with airspace opacities above the minor fissure within the right lung and a probable right-sided effusion. Features are suspect for a pneumonia. Dictated by: Dictated on workstation # [id number]
[2022-07-24 18:27] LABS: ALBUMIN 2.8 GM/DL (3.2-4.5); BILIRUBIN,TOTAL 0.9 MG/DL (0.1-1.0); CALCIUM 9.4 MG/DL (8.5-10.1); CREATININE SERUM 0.65 MG/DL (0.60-1.30); TOTAL PROTEIN 7.1 GM/DL (6.4-8.2)
[2022-07-24] MEDS ORDERED: cefTRIAXone IV/IM 1,000 MG in NS (IVPB) 50 ML IV STA (18:34)
[2022-07-24 18:38] LABS: BAND NEUTROPHILS 3 %; BASOPHILS % (MANUAL) 0 %; EOSINOPHILS % (MANUAL) 0 %; LYMPHOCYTES % (MANUAL) 6 %; MONOCYTES % (MANUAL) 5 %; NEUTROPHILS % (MANUAL) 86 %
[2022-07-24 18:39] LABS: TOXIC GRANULATION/VACUOLAZATIO 2+
[2022-07-24 19:59] VITALS: BP 117/58
== END 2022-07-24 20:08 | disposition short-term general hospital (02) ==
LOC: EDUNIT# 17:17 → ER FS 17:18
DX: J18.9 Pneumonia, unspecified organism (principal); N30.00 Acute cystitis without hematuria; L89.311 Pressure ulcer of right buttock, stage 1; R53.1 Weakness; Z86.16 Personal history of COVID-19; Z99.81 Dependence on supplemental oxygen; Z88.2 Allergy status to sulfonamides
CPT/HCPCS: 36415; 51702; 71045; 80053; 81000; 83605; 85007; 85027; 86141; 87040; 87088

== ENCOUNTER 2022-08-02 17:46 | Emergency (ER) | payer MEDICARE ==
[2022-08-02] MEDS ORDERED: KETOROLAC 30 MG/ML VIAL IM STA (18:08)
[2022-08-02] MEDS ORDERED: DICYCLOMINE 10 MG/ML (BENTYL) 2 ML AMP IM STA (18:08)
--- NOTE | 2022-08-02 18:32 | ED GI ---
General Chief Complaint: Abdominal/GI Problems Stated Complaint: CONSTIPATION Nursing Triage Note: Patient has been brought to ER by EMS for constipation. Source of Information: Patient, EMS History of Present Illness Date Seen by Provider: August 02, 2022 Time Seen by Provider: 17:56 Initial Comments 87-year-old female presenting by EMS from home due to constipation. She stated that she was on the toilet straining and then was too weak to get back up off of the toilet. She had EMS come help her because her main caregivers were not at home to help her. When she told them that she was constipated she wanted them to bring her to the emergency department for treatment. She has no other medical complaints. She denied having nausea or vomiting. She stated that she just had hard stool and despite taking a laxative yesterday and trying to use a suppository today she still has not been able to have a bowel movement. Timing/Duration: 1-2 Days Severity/Quality: Moderate, Cramping Location: Generalized Abdomen Activities at Onset: None Modifying Factors: Worsens With Defecating Associated Symptoms: No Chest Pain, No Diaphoresis, No Fever/Chills, No Nausea/Vomiting, No Swelling/Mass in Abdomen Allergies and Home Medications Allergies Coded Allergies: Sulfa (Sulfonamide Antibiotics) (Verified Allergy, Unknown, 05/17/13) Uncoded Allergies: KFLEX (Allergy, Severe, RASH, 05/17/13) Patient Home Medication List Home Medication List Reviewed: Yes Amlodipine Besylate (Amlodipine Besylate) 5 Mg Tablet, 5 MG PO DAILY, (Reported) Entered as Reported by: FIDENCIO JASSO on 05/10/21 1401 Calcium Carbonate/Vitamin D3 (Calcium + Vitamin D Tablet) 1 Each Tablet, 1 EACH PO DAILY, (Reported) Entered as Reported by: FIDENCIO JASSO on 05/10/21 1401 Cefdinir (Cefdinir) 300 Mg Capsule, 300 MG PO BID Prescribed by: JENNIFER SEAMAN on 05/13/21 113 Dexamethasone (Decadron) 6 Mg Tablet, 6 MG PO DAILY Prescribed by: JENNIFER SEAMAN on 05/13/21 113 Doxycycline Hyclate (Doxycycline Hyclate) 100 Mg Tablet, 100 MG PO BID Prescribed by: BRANT MEZA on 08/13/212012 Fluoxetine HCl (Fluoxetine HCl) 10 Mg Capsule, 10 MG PO DAILY, (Reported) Entered as Reported by: FIDENCIO JASSO on 05/10/21 1401 Guaifenesin/Pseudoephedrne HCl (Mucinex D ER 600-60 mg Tablet) 1 Each Tab.er.12h, 1 EACH PO Q12H PRN for CONGESTION, (Reported) Entered as Reported by: FIDENCIO JASSO on 05/10/21 1405 Miconazole Nitrate (Lotrimin AF) 90 Gm Powder, 0 GM TOP BID Prescribed by: JENNIFER SEAMAN on 05/13/21 1130 Pravastatin Sodium (Pravastatin Sodium) 40 Mg Tablet, 40 MG PO DAILY, (Reported) Entered as Reported by: FIDENCIO JASSO on 05/10/21 1401 Prednisone (Prednisone) 20 Mg Tab, 40 MG PO DAILY Prescribed by: ESAU ESPINAL on 09/01/21 1801 Tramadol HCl (Tramadol HCl) 50 Mg Tablet, 50 MG PO Q12H PRN for PAIN-MODERATE (5-7) Prescribed by: JENNIFER SEAMAN on 05/13/21 1131 Warfarin Sodium (Warfarin Sodium) 2 Mg Tablet, 2 MG PO DAILY Prescribed by: JENNIFER SEAMAN on 05/13/21 1130 Review of Systems Review of Systems Constitutional: No chills, No fever EENTM: No Symptoms Reported Gastrointestinal: See HPI Genitourinary: Denies Pain Past Uvkacbt-Dnlfnw-Ustqsz Hx Patient Social History Tobacco Use?: No Use of E-Cig and/or Vaping dev: No Substance use?: No Alcohol Use?: No Immunizations Up To Date First/Initial COVID19 Vaccinat: unknown date Second COVID19 Vaccination Riley: unknown date Past Medical History Surgery/Hospitalization HX: Hospitalized for 4 days with COVID in May 2021. 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 oz. 100.389200dk; 40.00 BMI Method: General Appearance: other (chronically ill appearing) Respiratory: chest non-tender, lungs clear, normal breath sounds, no respiratory distress, no accessory muscle use Cardiovascular: normal peripheral pulses, regular rate, rhythm Gastrointestinal: normal bowel sounds, non tender, soft, no pulsatile mass Rectal: tenderness, other (large amount of brown colored stool removed from rectum on digital rectal exam) Extremities: normal range of motion, non-tender, normal capillary refill Skin: warm/dry, other (stage 1 decubitus ulcer to right buttock with some cream on it on arrival to ED) Procedures/Interventions Suture Size: 4-0 Progress/Results/Core Measures Results/Orders My Orders Orders - ESAU ESPINAL MD Abdomen Flat & Upright/Decub (08/02/22 18:07) Ketorolac Injection (Toradol Injection) (08/02/22 18:08) Dicyclomine Injection (Bentyl Injection) (08/02/22 18:08) Vital Signs/I&O 08/02/22 08/02/22 18:09 18:45 Temp 36.7 36.7 Pulse 89 89 Resp 16 16 B/P (MAP) 123/56 (78) 123/56 Pulse Ox 92 92 O2 Delivery Room Air Room Air Blood Pressure Mean: 78 Progress Progress Note #1: Progress Note Presents with diagnosis of constipation, fecal impaction, dehydration. On physical exam she had firm stool in her rectum with digital rectal exam. I was able to disimpact and remove a large amount of brown-colored stool from her rectum. Patient tolerated procedure well without any immediate complication. She did request something for cramping pain in her abdomen. Will administer Toradol 30 mg IM and Bentyl 20 mg IM x1 to help with pain. Obtain KUB and upright film to look for signs of obstruction or see how much stool is present. Progress Note #2: Progress Note On my personal review and interpretation of her acute abdomen x-rays she had no obstruction or blockage. There is no evidence of perforation or free air. Will discharge to home and encourage patient to use MiraLAX on a daily basis until her stools are soft and regular. Then she could decrease to 2-3 times a week as needed to help keep her stools soft and regular. Keep her appointment tomorrow with Dr. Penny for routine follow-up and posthospital follow-up. Diagnostic Imaging Diagonstic Imaging: Xray Plain Films/CT/US/NM/MRI: abdomen Comments [facility] [place], [place] NAME: TADEO MILLS [facility] REC#: [id number] PT STATUS: DEP ER : 1935 PHYSICIAN: ESAU ESPINAL MD ADMIT DATE: 08/02/22/ER FS Draft Date of Exam:08/02/22 ABDOMEN FLAT & UPRIGHT/DECUB INDICATION: Constipation and abdominal pain EXAMINATION: Abdomen 08/02/2022 FINDINGS: Single view abdomen. There is scattered air and stool throughout the colon to the rectosigmoid. No dilated loops of bowel. No free air. Clips in the right upper quadrant likely due to previous cholecystectomy. IMPRESSION: Nonobstructive bowel gas pattern. Dictated on workstation # [id number] Dict: 08/02/22 1837 Trans: 08/02/22 1845 [facility] [id number] Interpreted by: SILVIO RAYO MD Electronically signed by: Reviewed: Reviewed by Me (I reviewed radiologist report at 1918) Departure Impression Primary Impression: Constipation Qualified Codes: K59.00 - Constipation, unspecified Additional Impression: Decubitus ulcer of buttock, stage 1 Qualified Codes: L89.311 - Pressure ulcer of right buttock, stage 1 Disposition: 01 HOME, SELF-CARE Condition: Stable Departure-Patient Inst. Decision time for Depature: 18:29 Referrals: SAMMI PENNY MD (PCP/Family) Primary Care Physician Patient Instructions: Constipation, Adult ED, Probiotics, How to Prevent Pressure Sores Add. Discharge Instructions: Take Miralax 17 grams mixed in 8 ounces of water or fluid of your choice for constipation. Take this daily until your stools are soft and regular. Then you could decrease the Miralax to 2-3 times a week to help keep stools regular and soft. Try to stay well hydrated. Follow up with clinic for continued concerns All discharge instructions reviewed with patient and/or family. Voiced understanding. ESAU ESPINAL MD August 02, 2022 18:32
[2022-08-02 18:45] VITALS: BP 123/56
--- NOTE | 2022-08-02 18:46 | Diagnostic Imaging Report ---
INDICATION: Constipation and abdominal pain EXAMINATION: Abdomen 08/02/2022 FINDINGS: Single view abdomen. There is scattered air and stool throughout the colon to the rectosigmoid. No dilated loops of bowel. No free air. Clips in the right upper quadrant likely due to previous cholecystectomy. IMPRESSION: Nonobstructive bowel gas pattern. Dictated by: Dictated on workstation # [id number]
== END 2022-08-02 18:46 | disposition home or self-care (01) ==
LOC: EDUNIT# 17:46 → ER FS 17:47
DX: K59.00 Constipation, unspecified (principal); L89.311 Pressure ulcer of right buttock, stage 1
CPT/HCPCS: 74019

== ENCOUNTER 2022-08-23 10:52 | Outpatient (RCR) | payer MEDICARE ==
[2022-08-16 11:25] LABS: INR 1.7 (0.8-1.4); PROTHROMBIN TIME PATIENT 20.4 SEC (12.2-14.7)
[2022-08-23 11:30] LABS: INR 1.9 (0.8-1.4); PROTHROMBIN TIME PATIENT 21.8 SEC (12.2-14.7)
== END 2022-08-30 | disposition home or self-care (01) ==
LOC: LAB FS 10:52
PROVIDERS: ATTEND Pediatrics
DX: I48.0 Paroxysmal atrial fibrillation (principal)
CPT/HCPCS: 36415; 85610

== ENCOUNTER 2022-09-12 10:18 | Outpatient (RCR) | payer MEDICARE ==
[2022-09-12 10:55] LABS: INR 1.7 (0.8-1.4); PROTHROMBIN TIME PATIENT 20.7 SEC (12.2-14.7)
== END 2022-09-29 | disposition home or self-care (01) ==
LOC: LAB FS 10:18
PROVIDERS: ATTEND Pediatrics
DX: I48.0 Paroxysmal atrial fibrillation (principal)
CPT/HCPCS: 36415; 85610

== ENCOUNTER 2022-10-16 08:59 | Outpatient (RCR) | payer MEDICARE ==
[2022-10-16 09:47] LABS: INR 1.5 (0.8-1.4); PROTHROMBIN TIME PATIENT 18.5 SEC (12.2-14.7)
== END 2022-10-30 | disposition home or self-care (01) ==
LOC: LAB FS 08:59
PROVIDERS: ATTEND Pediatrics
DX: I48.0 Paroxysmal atrial fibrillation (principal)
CPT/HCPCS: 36415; 85610